=== PATIENT | female | born 1940 | race Caucasian/White ===

== ENCOUNTER → 2016-10-19 | Outpatient (CLI) | payer MEDICARE ==
[2016-10-20 13:28] LABS: C-ANCA <1:20 Titer (<1:20); P-ANCA <1:20 Titer (<1:20)
[2016-10-20 14:34] LABS: Scleroderma 70 Antibody 5 UNITS (<20)
== END ==
LOC: LABWHC1 13:42
PROVIDERS: ATTEND Nurse Practitioner Family
DX: J34.81 Nasal mucositis (ulcerative) (principal)
CPT/HCPCS: 36415; 85652; 86038; 86235; 86255

== ENCOUNTER → 2016-12-02 | Outpatient (CLI) | payer MEDICARE ==
--- NOTE | 2016-12-02 15:49 | CT ---
EXAMINATION TYPE: CT sinus wo con DATE OF EXAM: 12/02/2016 3:41 PM COMPARISON: NONE HISTORY: Right sided nasal, eye and ear pain CT DLP: 699.[address] of the paranasal sinuses was performed in the axial and coronal planes. Bone and soft tissue settings are submitted. Moderate mucosal thickening involving the maxillary sinuses and ethmoid air cells as well as the fron jb sinuses with sparing of the sphenoid sinus. The osteal meatal units are obstructed bilaterally. The nasal septum is midline. No bony destructive changes are seen within the field of view. IMPRESSION: Moderate chronic sinusitis with obstruction of the bilateral ostiomeatal units.
--- NOTE | 2016-12-02 15:50 | XR ---
EXAMINATION TYPE: XR chest 2V DATE OF EXAM: 12/02/2016 3:25 PM COMPARISON: 03/22/2013 HISTORY: Shortness of breath TECHNIQUE: Frontal and lateral views of the chest are obtained. FINDINGS: Scattered senescent parenchymal changes noted. Hyperinflation compatible with COPD. No evidence for infiltrate. No evidence for atelectasis. Fixed hiatal hernia. Heart size is stable. Mediastinal structures are stable and grossly unremarkable. No evidence for hilar prominence. Degenerative changes dorsal spine. IMPRESSION: 1. No evidence for acute pulmonary disease.
== END | disposition home or self-care (01) ==
LOC: RADCTMAIN 15:11
PROVIDERS: ATTEND Otolaryngology
DX: J32.9 Chronic sinusitis, unspecified (principal); J98.8 Other specified respiratory disorders; R05 Cough
CPT/HCPCS: 70486; 71020

== ENCOUNTER → 2016-12-07 | Outpatient (CLI) | payer MEDICARE | LOC: LABWHC1 13:15 | PROVIDERS: ATTEND Otolaryngology | DX: J34.0 Abscess, furuncle and carbuncle of nose (principal) | CPT/HCPCS: 36415; 82164 ==

== ENCOUNTER → 2017-01-10 | Outpatient (CLI) | payer MEDICARE ==
[2017-01-10 11:05] LABS: Basophils # (A) 0.1 k/uL (0-0.2); Basophils % (A) 1 %; CH 29.3; CHCM 34.1; Eosinophils # (A) 0.4 k/uL (0-0.7); Eosinophils % (A) 4 %; HCT 42.6 % (34.0-46.0); HGB 14.3 gm/dL (11.4-16.0); Luc # (Auto) 0.17; Luc % (Auto) 2; Lymphocytes % (A) 21 %; MCH 28.9 pg (25.0-35.0); MCHC 33.5 g/dL (31.0-37.0); MCV 86.3 fL (80.0-100.0); Mean Platelet Volume 7.3; Monocytes # (A) 0.4 k/uL (0-1.0); Monocytes % (A) 4 %; Neutrophils # (A) 6.6 k/uL (1.3-7.7); Neutrophils % (A) 69 %; RBC 4.94 m/uL (3.80-5.40); RDW 14.5 % (11.5-15.5); WBC 9.6 k/uL (3.8-10.6); WBC (Perox) 9.51
[2017-01-10 11:25] LABS: Blood Urea Nitrogen 13 mg/dL (7-17); Non-African American GFR(MDRD) >60 (>60 ml/min/1.73 sqM)
== END | disposition home or self-care (01) ==
LOC: LABWHC1 10:45
PROVIDERS: ATTEND Otolaryngology
DX: R53.83 Other fatigue (principal)
CPT/HCPCS: 36415; 82565; 84439; 84443; 84520; 85025

== ENCOUNTER → 2018-06-20 | Outpatient (CLI) | payer MEDICARE ==
[2018-06-20 15:24] LABS: HGB 13.5 gm/dL (11.4-16.0); MCH 29.2 pg (25.0-35.0); MCHC 32.8 g/dL (31.0-37.0); MCV 88.8 fL (80.0-100.0); Mean Platelet Volume 7.3; Platelet Count 244 k/uL (150-450); RBC 4.62 m/uL (3.80-5.40); RDW 14.9 % (11.5-15.5); WBC 8.2 k/uL (3.8-10.6)
[2018-06-20 15:31] LABS: INR 0.9 (<1.2); Partial Thromboplastin Time 22.9 sec (22.0-30.0)
[2018-06-20 15:52] LABS: ALT 33 U/L (9-52); AST 31 U/L (14-36); Albumin 4.3 g/dL (3.5-5.0); Alkaline Phosphatase 58 U/L (38-126); Anion Gap 10 mmol/L; Blood Urea Nitrogen 20 mg/dL (7-17); Calcium 10.4 mg/dL (8.4-10.2); Carbon Dioxide 28 mmol/L (22-30); Chloride 103 mmol/L (98-107); Glucose 89 mg/dL (74-99); Potassium 4.1 mmol/L (3.5-5.1); Sodium 141 mmol/L (137-145); Total Bilirubin 0.4 mg/dL (0.2-1.3); Total Protein 7.2 g/dL (6.3-8.2)
[2018-06-20 16:08] LABS: Appearance,Urine Clear (Clear); Bilirubin,Urine Negative (Negative); Blood,Urine Negative (Negative); Color,Urine Yellow; Glucose,Urine (UA) Negative (Negative); Ketones,Urine Negative (Negative); Leukocyte Esterase,Urine Trace (Negative); Mucus,Urine Few /hpf; Nitrite,Urine Negative (Negative); PH, Urine 5.5 (5.0-8.0); Protein,Urine Negative (Negative); RBC,Urine 1 /hpf (0-5); Specific Gravity,Urine 1.019 (1.001-1.035); Squamous Epithelial Cell,Urine <1 /hpf (0-4); Urobilinogen,Urine <2.0 mg/dL (<2.0); WBC,Urine 2 /hpf (0-5)
== END ==
LOC: LABPAT 14:05
PROVIDERS: ATTEND Orthopaedic Surgery Sports Medicine
DX: Z01.812 Encounter for preprocedural laboratory examination (principal); M17.12 Unilateral primary osteoarthritis, left knee; Z51.81 Encounter for therapeutic drug level monitoring; Z79.01 Long term (current) use of anticoagulants
CPT/HCPCS: 36415; 80053; 81001; 85027; 85610; 85730; 87070

== ENCOUNTER 2018-07-06 09:04 | Inpatient (IN) | payer MEDICARE ==
[2018-06-27 11:09] VITALS: BMI 30.6
[~2018-07-06 09:04] MED LIST: DEXAMETHASONE SOD PHOSPHATE 10 MG/ML 1 ML VIAL IV ONE; HYDROmorphone 0.5 MG/0.5 ML SYRINGE IVP PRN; LIDOCAINE 1% 20 ML VIAL (10MG/ML) FOR IV START INTRADERMA PRN; MELOXICAM 7.5 MG TAB PO ONE; ONDANSETRON 4 MG/2 ML VIAL IVP ONE; SCOPOLAMINE 1.5MG/72HR PATCH TRANSDERM ONE; TRANEXAMIC ACID 1,000 MG in SODIUM CHLORIDE 0.9% 50 ML IVPB ONE; ceFAZolin IN SWFI 2 GM/20 ML SYRINGE IVP ONE
[2018-07-06] MEDS: LACTATED RINGERS 1,000 ML IV SCH ×2 (09:54→16:44)
[2018-07-06] MEDS: ROPIVACAINE 246.25 MG, EPINEPHrine 0.5 MG, KETOROLAC 30 MG, cloNIDine HCL/PF 80 MCG, WA... MISCELLANE ONE ×10 (10:52→11:33)
[2018-07-06] MEDS ORDERED: PHENYLEPHRINE-0.9% NACL SYG 1 MG/10 ML SYRINGE ONE (10:53)
[2018-07-06] MEDS ORDERED: TRANEXAMIC ACID 1,000 MG/10 ML VIAL ONE (10:53)
[2018-07-06] MEDS ORDERED: fentaNYL (PF) 50 MCG/ML 2 ML AMP ONE (10:53)
[2018-07-06] MEDS ORDERED: MIDAZOLAM 2 MG/2 ML VIAL ONE (10:53)
[2018-07-06] MEDS ORDERED: SODIUM CHLORIDE 0.9% 100 ML BAG ONE (10:53)
[2018-07-06] MEDS ORDERED: MORPHINE SULFATE (PF) 0.3 MG/0.3 ML SYR ONE (10:53)
[2018-07-06] MEDS ORDERED: PROPOFOL 10 MG/ML 20 ML VIAL IV ONE (10:53)
[2018-07-06] MEDS ORDERED: ceFAZolin 3,000 MG in SODIUM CHLORIDE 0.9% IRRIGATIO 3,000 ML IRRIGATION ONE (11:36)
[2018-07-06] MEDS ORDERED: HYDROcodone/APAP 7.5-325MG 1 EACH TAB PO PRN (13:02)
[2018-07-06] MEDS ORDERED: ONDANSETRON 4 MG/2 ML VIAL IVP PRN (13:02)
[2018-07-06] MEDS ORDERED: MAGNESIUM HYDROXIDE 2,400 MG/10 ML CUP PO PRN (13:02)
[2018-07-06] MEDS ORDERED: TEMAZEPAM 15 MG CAP PO PRN (13:02)
[2018-07-06] MEDS ORDERED: DIAZEPAM 5 MG TAB PO PRN (13:02)
[2018-07-06] MEDS ORDERED: HYDROmorphone 0.5 MG/0.5 ML SYRINGE IVP PRN ×3 (13:02)
[2018-07-06] MEDS ORDERED: HYDROcodone/APAP 10-325MG 1 EACH TAB PO PRN (13:02)
[2018-07-06] MEDS ORDERED: traMADol 50 MG TAB PO PRN (13:02)
[2018-07-06] MEDS ORDERED: BISACODYL 10 MG SUPP RECTAL PRN (13:02)
[2018-07-06] MEDS ORDERED: NALOXONE 0.4 MG/ML 1 ML VIAL IV PRN ×2 (13:02→13:52)
[2018-07-06] MEDS ORDERED: NA PHOS,M-B/NA PHOS,DI-BA 133 ML ENEMA RECTAL PRN (13:02)
[2018-07-06] MEDS ORDERED: HYDROcodone/APAP 5-325MG 1 EACH TAB PO PRN ×2 (13:02)
--- NOTE | 2018-07-06 13:11 | OP ---
OPERATIVE REPORT DATE OF PROCEDURE: 07/06/2018 SURGEON: Francisco Javier Zuniga MD MRI ASSISTANT: Brendon DOUGHERTY. PREOPERATIVE DIAGNOSIS: Left knee osteoarthrosis. POSTOPERATIVE DIAGNOSIS: Left knee osteoarthrosis. OPERATION: Left total knee arthroplasty. ANESTHESIA: Spinal with sedation. ESTIMATED BLOOD LOSS: 100 mL. TOURNIQUET TIME: 44 minutes at 250 mmHg. COMPLICATIONS: None apparent. DRAINS: None. DISPOSITION: Postanesthesia care unit. INDICATIONS: Maral is a very pleasant 78-year-old female, longstanding history of left knee pain. History and physical examination are consistent with advanced left knee osteoarthrosis. She has been through significant nonoperative management up to this point. Further treatment options were discussed and she decided to go forward with a left total knee arthroplasty. The risks of procedure were discussed with her in detail. These risks include, but are not limited to risk of infection, nerve damage, bleeding, pain and risk of deep vein thrombosis which could lead to fatal pulmonary embolism. There is also risk of loosening of the implant which could require revision operation. The patient understands these risks. All of her questions were answered to her satisfaction. Appropriate informed consent was obtained. DESCRIPTION OF THE PROCEDURE: Patient identified in the preoperative holding area. Surgical site is marked by both the patient and myself. She was given 2 g of Ancef IV for prophylactic purposes. She was then transferred to the operative suite. She was placed supine on the operative table. A spinal anesthetic was then administered and dosed per the Anesthesia Department without apparent complication. The examination under anesthesia was then performed. She was 2-3 degrees shy of full extension. She had 100 degrees of flexion and the medial collateral ligament, lateral collateral ligament and posterior cruciate ligaments were stable. Tourniquet was then placed high on the left upper thigh well-padded in preparation for surgery. The patient's left lower extremity was then prepped and draped in usual sterile fashion. Standard surgical pause undertaken to ensure that we were operating the correct site and that appropriate preoperative antibiotics were given. All staff in the room were in agreement and we proceeded. The outlines of the patella were marked with surgical pen. A planned 10-12 cm vertical incision centered over the patella was marked with surgical pen. Leg was then exsanguinated with an Esmarch dressing. The knee was then flexed and tourniquet was inflated to 250 mmHg. The total tourniquet time for the procedure was 44 minutes. Incision was then made with a 10 blade scalpel. Dissection was carried down sharply to the overlying fascia. Great care was taken to minimize the skin flaps. The knee was then exposed using a standard medial parapatellar approach. A small cuff of quadriceps tendon was left for suturing. She was in a bit of valgus preoperatively. A minimal medial release was made. This was done just enough to place retractors on the medial aspect of the knee. The medial meniscus was then excised as well. The lateral meniscus was also released anteriorly. The leg was then externally rotated. The patella was everted and the knee was flexed. The retractors were then placed to protect the collateral ligaments. I then proceeded to remove the infrapatellar fat pad. This was excised sharply, tangentially with the fibers of the patellar tendon. I then proceeded to remove peripheral osteophytes. This was done with a rongeur. I then proceeded with the distal femoral resection. She did have near full extension. A planned 9 mm resection was then done. The femoral canal was then entered in the midline of the femur approximately 10 mm anterior to the origin of the posterior cruciate ligament. The hailey was then advanced down the center of the femur and placed intramedullary. Based on preoperative radiographs, the angle between the anatomic and mechanical axis of the femur was approximately 4-5 degrees. The valgus angle of this femoral cutting guide was then set at 4 degrees for the left knee. The distal femoral cutting guide was then advanced over the intramedullary hailey. This was seated firmly against the femur. I then as mentioned planned to take 9 mm off the distal femur. The cutting block was then secured onto the femur with pins. The jig was removed. The distal femoral cut was made through the slot of the block. The pins were then removed. The distal femoral cutting block was removed. The accuracy of the distal femoral cuts was checked with 2 flat bars. I then proceeded with femoral sizing. Posterior referencing sizing guide was held firmly against the resected distal surface of the femur. The posterior condyles were resting on the posterior plane of the guide. The sizing stylus was then placed onto the anterior femur. The size was measured as a size 9 narrow. I then assessed for femoral rotation. The plan was for 3 degrees of external rotation. Three degrees of external rotation was placed onto the jig. These holes were then marked. I then confirmed the rotation by 3 separate methods. This was done using epicondylar axis as well as Whitesides line and posterior referencing. It was deemed that the external rotation was proper. I then went forward with placing the femoral cutting block. This was placed over the previously placed pin holes. The [place] wing was then placed on the anterior slots to ensure that we would not notch the anterior femur with the anterior femoral cut. I then proceeded with the anterior femoral cut. This was flush with the anterior cortex of the femur. The posterior cuts were then made followed by the anterior chamfer cut, then the posterior chamfer cut. The cutting block was then removed. Throughout the resection, the collateral ligaments were protected with retractors. I then placed a trial size 9 femur. It was slightly wide mediolateral but the narrow was very nice and fit flush with the distal end of the femur. The drill holes were then made. I then proceeded with the tibial cut. I planned for cruciate retaining knee. The guide was placed and set for varus valgus and for slope. The height was set for approximate 2 mm resection from the medial tibial plateau which was the lower side but was happy with the alignment and amount of resection. The cutting block was then pinned to the proximal tibia. The alignment hailey was removed and the proximal tibia was resected with a reciprocating saw. Again this was done with retractors protecting the collateral ligaments as well as the posterior cruciate ligament. I then proceeded to evaluate the flexion-extension gaps. A 10 mm block was then placed. The flexion-extension gaps were equal. I then proceeded to resection of posterior osteophytes. She had very minimal posterior osteophytes. This was done using a curved osteotome. This resected the posterior osteophytes and posterior capsule stripping was done off the posterior aspect of the femur at this time. The osteophytes were removed. I then proceeded with resection of the patella. The thickness of patella was measured using the caliper. The thickness was 24 mm. The thickness of the anticipated patellar dome was taken into account. The resection was then performed and confirmed to be equal in 4 quadrants using a caliper. Approximately 14 mm of bone remained after resection. A 32 x 8.5 mm standard patellar trial was then placed. The holes were drilled and the trial was then placed. I then proceeded with sizing tibial plate. A size F tibial plate fit very nicely. I then placed a trial of the femur. The tibial tray and patellar button. A 10 mm trial tibial insert was also placed. The components fit very nicely. She had full extension and flexion. The extension and flexion gaps were equal and stable to both varus and valgus stress. The patella tracked appropriately. The tibial tray rotation was marked with a Bovie. This was externally rotated properly. I then proceed with tibial preparation. I first drilled the femoral holes and removed femoral component. The tibial tray was then set for proper external rotation as well as mediolateral placement onto the tibia. It was then pinned into place. I then proceeded with punching the keel. I then decided to proceed with cementing of all of our components. The knee was thoroughly irrigated with sterile saline solution via pulse lavage. The lateral geniculate artery was identified and cauterized. All blood was removed from the bone of the tibia femur and patella with pulse lavage. I then proceed with cementing. Two packs of antibiotic bone cement prepared on the back table by the medical surgical tech. I then proceed with cementing the tibia first. Cement was impacted in the keel as well as deeply seated in the bone. A second coat of cement was then placed. The tibia was then impacted into place. Excess cement was removed with Cecile's and Joker's. I then proceeded with cementing the femoral component. The femoral component was also cemented using standard technique. Excess cement was removed. A 10 mm trial insert was then placed into the knee. It was brought into full extension with a constant axial load placed until the cement had hardened. The patellar component was then cemented. This was held firmly with a compressive device until the cement had dried. When the cement had dried, the knee was taken out of extension. All excess cement was removed from around the prosthesis. I then trialed the knee with a 10 mm insert. The flexion-extension gaps were appropriate. I then trialed with a 12 mm insert. Flexion extension gaps felt much better. The knee was stable with the 12 mm insert. It came into full extension. I decided to go for the 12 mm cross-linked cruciate-retaining tibial insert. Polyethylene was then placed on the tibial tray and locked into place. The knee was then reduced. The knee was again further irrigated with sterile saline solution with antibiotic added. The tourniquet was then deflated. Total tourniquet time for the procedure was 44 minutes at 250 mmHg. Final components were Juan A Persona size 9 narrow cruciate-retaining femoral component, a size F tibial tray, a 12 mm medial congruent cruciate-retaining polyethylene insert and a 32 x 8.5 mm patella. I then proceeded with closure. Again, the knee was thoroughly irrigated. The quadriceps tendon and the medial retinaculum were reapproximated with #2 Ethibond suture. The extensor mechanism was then closed with a running #2 Quill suture. Subcutaneous tissues were then closed with 2-0 Vicryl suture. The skin was closed with a running 3-0 Quill suture. Dermabond was applied to the incision. Sterile compressive dressing was then applied. All sponge and needle counts were deemed correct prior to closure. The patient tolerated the procedure without apparent complication. She was transferred to recovery room in stable condition. MMODL / IJN: [id number] /
--- NOTE | 2018-07-06 13:32 | XR ---
EXAMINATION TYPE: XR knee limited LT DATE OF EXAM: 07/06/2018 COMPARISON: NONE HISTORY: 78-year-old female evaluation for postoperative abnormality and alignment TECHNIQUE: 2 views FINDINGS: Images show placement of left total knee arthroplasty. The distal femoral and proximal tibial compone nts of the prosthesis appear well seated without periprosthetic fracture. Alignment grossly anatomic. Soft tissue swelling with anterior soft tissue air as well as intra-articular air and joint effusion compatible with recent operation. IMPRESSION: Uncomplicated postoperative appearance left total knee arthroplasty.
[2018-07-06] MEDS ORDERED: diphenhydrAMINE 50 MG/ML 1 ML VIAL IVP PRN (13:52)
[2018-07-06] MEDS ORDERED: NALBUPHINE 10 MG/ML VIAL (10ML MDV) IV PRN (13:52)
--- NOTE | 2018-07-06 16:01 | P.CONS ---
History of Present Illness - Reason for Consult Consult date: 07/06/18 Requesting physician: Francisco Javier Zuniga - Chief Complaint medical management - History of Present Illness This is 78 years old female with past medical history of TIA. 10 years ago, hypertension, hyperlipidemia, GERD patient of Dr. Baker presents for an elective left total knee replacement. Internal medicine team is consulted for medical management. Patient denies any shortness of breath, chest pain, breathing difficulty, palpitation, abdominal pain, change in bowel habits, pain in the knee, any history of DVT or pulmonary embolism in the past. Patient is postop left knee arthroplasty blood pressure last reported to be 94/ 76, pulse 76 saturating well on room air. No labs in the chart. No history of coronary artery disease or COPD. Review of Systems Constitutional: Denies chills, Denies fever, Denies lethargy, Denies malaise, Denies poor appetite, Denies weakness, Denies weight loss Eyes: denies decreased vision, denies diplopia, denies discharge, denies pain Ears: deny: decreased hearing Ears, nose, mouth and throat: Denies dental pain, Denies headache, Denies nasal discharge, Denies nose pain Cardiovascular: Denies chest pain, Denies decreased exercise tolerance, Denies edema, Denies high blood pressure, Denies irregular heart beat, Denies palpitations, Denies paroxysmal nocturnal dyspnea, Denies rapid heart beat, Denies shortness of breath Respiratory: Denies congestion, Denies cough, Denies cough with sputum, Denies dyspnea, Denies home oxygen, Denies wheezing Gastrointestinal: Denies abdominal pain, Denies change in bowel habits, Denies coffee ground emesis, Denies early satiety, Denies excessive gas, Denies heartburn, Denies hematemesis, Denies hematochezia, Denies loss of appetite, Denies nausea, Denies vomiting Genitourinary: Denies dysuria, Denies flank pain, Denies kidney stones, Denies menorrhagia, Denies urgency, Denies urinary frequency Musculoskeletal: Denies gait dysfunction, Denies limitation of motion, Denies morning stiffness, Denies muscle cramps endorses left knee pain Integumentary: Denies rash, Denies wounds, Denies brittle nails, Denies change in hair/nails, Denies darkening of skin Neurological: Denies balance difficulties, Denies change in speech, Denies double vision, Denies gait dysfunction, Denies loss of vision, Denies motor disturbance, Denies numbness, Denies paralysis, Denies paresthesias, Denies seizures Psychiatric: Denies anxiety, Denies depression Endocrine: Denies excessive sweating, Denies excessive thirst, Denies high blood sugars, Denies palpitations Hematologic/Lymphatic: Denies easy bruising, Denies lymphadenopathy Past Medical History Past Medical History: CVA/TIA, GERD/Reflux, GI Bleed, Hyperlipidemia, Hypertension, Osteoarthritis (OA) Additional Past Medical History / Comment(s): HX TIA-no residual effects, diarrhea, diverticulitis, hx gout, 10 yrs ago had GI bleed from diverticulitis, History of Any Multi-Drug Resistant Organisms: None Reported Past Surgical History: Cholecystectomy, Joint Replacement, Orthopedic Surgery, Tubal Ligation Additional Past Surgical History / Comment(s): ORIF rt ankle, [place] hip replacements, left cataract, sinus surgery Past Anesthesia/Blood Transfusion Reactions: Previous Problems w/ Anesthesia Additional Past Anesthesia/Blood Transfusion Reaction / Comm: had hallucinations from propofol Smoking Status: Former smoker - Past Family History Mother Family Medical History: No Reported History Medications and Allergies Home Medications Medication Instructions Recorded Confirmed Type Alendronate Sodium [Fosamax] 70 mg PO MO 06/27/18 07/06/18 History Calcium + D3 1 tab PO HS 06/27/18 07/06/18 History Cholecalciferol [Vitamin D3] 2,000 unit PO HS 06/27/18 07/06/18 History Ezetimibe [Zetia] 10 mg PO DAILY 06/27/18 07/06/18 History Ibuprofen [Advil] 200 mg PO DAILY PRN MDD alternates 06/27/18 07/06/18 History with aleve Metoprolol Tartrate [Lopressor] 25 mg PO BID 06/27/18 07/06/18 History Multivitamins, Thera [Multivitamin 1 tab PO HS 06/27/18 07/06/18 History (formulary)] Naproxen Sodium [Aleve] 220 mg PO DAILY 06/27/18 07/06/18 History Omeprazole [PriLOSEC] 20 mg PO AC-BRKFST 06/27/18 07/06/18 History Triamterene/Hydrochlorothiazid 1 tab PO QAM 06/27/18 07/06/18 History [Triamterene-Hctz 37.5-25 mg Tb] Allergies Allergy/AdvReac Type Severity Reaction Status Date / Time acetaminophen Allergy Nausea Verified 07/06/18 13:49 [From Tylenol-Codeine #3] black walnut Allergy Unknown Verified 07/06/18 13:49 codeine Allergy Nausea Verified 07/06/18 13:49 egg yolk Allergy Unknown Verified 07/06/18 13:49 hydrocodone [From Ismay] Allergy hearing Verified 07/06/18 13:49 loss Penicillins Allergy Nausea Verified 07/06/18 13:49 Physical Exam Vitals: Vital Signs Temp Pulse Pulse Resp BP BP Pulse Ox 07/06/18 15:15 76 94/76 07/06/18 15:00 75 99/60 07/06/18 14:30 71 170/71 07/06/18 14:15 97.7 F 73 14 95/54 95 07/06/18 13:45 67 16 95/55 96 07/06/18 13:30 66 16 93/57 97 07/06/18 13:15 64 16 101/48 97 07/06/18 13:02 97.1 F L 65 16 101/49 96 07/06/18 09:41 98.0 F 69 16 112/56 96 Intake and Output 07/06/18 07/06/18 07/06/18 06:59 14:59 22:59 Intake Total 801 Output Total 100 Balance 701 Intake: IV 801 Output: Estimated Blood Loss 100 - Constitutional General appearance: cooperative, no acute distress, obese - EENT Eyes: anicteric sclerae, PERRLA, normal appearance ENT: hearing grossly normal - Neck Neck: no lymphadenopathy, normal ROM, no other, no rigidity, no stridor, no thyromegaly - Respiratory Respiratory: bilateral: CTA, negative: diminished, dullness, rales, rhonchi - Cardiovascular Rhythm: regular Heart sounds: normal: S1, S2 Abnormal Heart Sounds: no systolic murmur, no diastolic murmur - Gastrointestinal General gastrointestinal: normal bowel sounds, soft - Integumentary Integumentary: no rash - Neurologic Neurologic: CNII-XII intact - Musculoskeletal Musculoskeletal: Left knee wrapped in dressing. Peripheral pulses palpable normal perfusion neurovascular system intact - Psychiatric Psychiatric: A&O x's 3, appropriate affect Assessment and Plan Plan: #1 left knee arthroplasty postoperative day 0. Continue incentive spirometry Pepcid for GI prophylaxis. Aspirin 325 mg twice a day for DVT prophylaxis. Encourage mobility PTOT consult possible discharge tomorrow. Pain control per primary team #2 hypertension blood pressure on the low side. We'll hold triamterene/HCTZ. Metoprolol decreased to 12.5 mg twice a day. Continue IV fluids. Encourage oral intake of fluids low-salt diet. Heart healthy diet. #3 hyperlipidemia continue Zetia at current dose 4 history of GI bleed from diverticulitis, normal recent episode continue aspirin 325 mg twice a day. Avoid nuts or seeds to avoid flareup of diverticulitis. #5 GI prophylaxis with Pepcid 20 mg by mouth daily #6 DVT prophylaxis with aspirin 325 mg by mouth twice a day CODE STATUS full code Thank you for the consult. I'll be happy to assist in patient's medical need for the patient is in the hospital
[2018-07-06] MEDS: diphenhydrAMINE 25 MG CAP PO PRN (16:08)
[2018-07-06] MEDS: ceFAZolin IN SWFI 2 GM/20 ML SYRINGE IVP SCH (19:48)
[2018-07-06] MEDS: METOPROLOL TARTRATE 12.5 MG TAB PO SCH (20:22)
[2018-07-06] MEDS: ASPIRIN 325 MG TAB PO SCH (20:22)
[2018-07-06] MEDS ORDERED: CALCIUM CARB-VIT D 500MG-200UN 1 EACH TAB PO SCH (21:00)
[2018-07-06] MEDS ORDERED: SENNOSIDES-DOCUSATE SODIUM 1 EACH TAB PO SCH (21:00)
[2018-07-06] MEDS ORDERED: CHOLECALCIFEROL 1,000 UNIT TAB PO SCH (21:00)
[2018-07-07] MEDS: ceFAZolin IN SWFI 2 GM/20 ML SYRINGE IVP SCH (02:24)
[2018-07-07] MEDS: diphenhydrAMINE 25 MG CAP PO PRN ×2 (02:49→07:48)
[2018-07-07] MEDS: LACTATED RINGERS 1,000 ML IV SCH ×2 (03:41)
[2018-07-07 07:21] LABS: Basophils % (A) 0 %; Eosinophils % (A) 0 %; HCT 34.6 % (34.0-46.0); HGB 11.3 gm/dL (11.4-16.0); Lymphocytes # (A) 1.3 k/uL (1.0-4.8); Lymphocytes % (A) 12 %; MCH 28.8 pg (25.0-35.0); MCHC 32.8 g/dL (31.0-37.0); MCV 87.8 fL (80.0-100.0); Mean Platelet Volume 7.6; Monocytes # (A) 0.5 k/uL (0-1.0); Monocytes % (A) 5 %; Neutrophils # (A) 9.1 k/uL (1.3-7.7); Neutrophils % (A) 82 %; Platelet Count 245 k/uL (150-450); RBC 3.94 m/uL (3.80-5.40); RDW 14.2 % (11.5-15.5); WBC 11.1 k/uL (3.8-10.6)
[2018-07-07] MEDS ORDERED: PANTOPRAZOLE 40 MG TABLET PO SCH (07:30)
[2018-07-07] MEDS: METOPROLOL TARTRATE 12.5 MG TAB PO SCH (07:48)
[2018-07-07 07:51] VITALS: BP 97/59; PULSE 63; RESP 12; TEMP 97.8
[2018-07-07] MEDS: ASPIRIN 325 MG TAB PO SCH (07:52)
--- NOTE | 2018-07-07 08:52 | P.DS ---
Providers Date of admission: 07/06/18 09:04 Expected date of discharge: 07/07/18 Attending physician: Francisco Javier Zuniga Consults: 07/06/18 13:02 Consult Physician Routine Consulting Provider: Garret Baker Reason/Comments: post op medical management Do you want consulting provider notified?: Yes Primary care physician: Garret Baker - Discharge Diagnosis(es) (1) Osteoarthritis of left knee Patient was admitted to the OR on 07/06/2018 to undergo a left total knee arthroplasty. She had failed conservative measures as an outpatient and desired to proceed with elective surgery after given informed consent. She underwent the above procedure which he tolerated well without complication. Postoperative hospital course has remained without complication. On day of discharge she is afebrile, vital signs stable, labs within acceptable ranges, tolerating by mouth meds and diet, voiding without difficulty, positive flatus, denies abdominal pain or calf pain, pain is controlled on oral pain medication and has no new complaints. Wound is benign, neurovascular status is intact, calf is soft and nontender, abdomen soft and nontender. Review of systems is negative for numbness, tingling, fever, chills, chest pain, shortness breath, nausea, vomiting, dizziness, headaches, slurred speech or other. Current Visit: Yes Status: Acute Priority: Medium (2) Status post total left knee replacement Current Visit: Yes Status: Acute Priority: Medium Procedures: Left TKA Patient Condition at Discharge: Good Plan - Discharge Summary Discharge Rx Participant: No New Discharge Prescriptions: New traMADol HCL [Ultram] 50 mg PO Q4HR PRN #56 tab PRN Reason: Pain Aspirin 325 mg PO BID #60 tab Docusate [Colace] 100 mg PO BID #60 capsule No Action Multivitamins, Thera [Multivitamin (formulary)] 1 tab PO HS Cholecalciferol [Vitamin D3] 2,000 unit PO HS Ezetimibe [Zetia] 10 mg PO DAILY Triamterene/Hydrochlorothiazid [Triamterene-Hctz 37.5-25 mg Tb] 1 tab PO QAM Omeprazole [PriLOSEC] 20 mg PO AC-BRKFST Metoprolol Tartrate [Lopressor] 25 mg PO BID Calcium + D3 1 tab PO HS Naproxen Sodium [Aleve] 220 mg PO DAILY Ibuprofen [Advil] 200 mg PO DAILY PRN MDD alternates with aleve PRN Reason: Pain Alendronate Sodium [Fosamax] 70 mg PO MO Discharge Medication List Alendronate Sodium [Fosamax] 70 mg PO MO 06/27/18 [History] Calcium + D3 1 tab PO HS 06/27/18 [History] Cholecalciferol [Vitamin D3] 2,000 unit PO HS 06/27/18 [History] Ezetimibe [Zetia] 10 mg PO DAILY 06/27/18 [History] Ibuprofen [Advil] 200 mg PO DAILY PRN MDD alternates with aleve 06/27/18 [ History] Metoprolol Tartrate [Lopressor] 25 mg PO BID 06/27/18 [History] Multivitamins, Thera [Multivitamin (formulary)] 1 tab PO HS 06/27/18 [History] Naproxen Sodium [Aleve] 220 mg PO DAILY 06/27/18 [History] Omeprazole [PriLOSEC] 20 mg PO AC-BRKFST 06/27/18 [History] Triamterene/Hydrochlorothiazid [Triamterene-Hctz 37.5-25 mg Tb] 1 tab PO QAM [History] Aspirin 325 mg PO BID #60 tab 07/07/18 [Rx] Docusate [Colace] 100 mg PO BID #60 capsule 07/07/18 [Rx] traMADol HCL [Ultram] 50 mg PO Q4HR PRN #56 tab 07/07/18 [Rx] Follow up Appointment(s)/Referral(s): [facility], [NON-STAFF] - Francisco Javier Zuniga MD [STAFF PHYSICIAN] - 10 Days Activity/Diet/Wound Care/Special Instructions: Take meds as directed F/U with Dr. Zuniga in office WBAT keep wound clean and dry May shower in 72 hrs if no bleeding Discharge Disposition: HOME WITH HOME HEALTH SERVICES
[2018-07-07] MEDS ORDERED: EZETIMIBE 10 MG TAB PO SCH (09:00)
--- NOTE | 2018-07-07 11:56 | P.PN ---
Progress Note - Text Progress Note Date: 07/07/18 Postoperative day 1 status , left total knee arthroplasty under spinal anesthesia, and intrathecal morphine given for postoperative analgesia, patient doing well, there is no anesthesia related complications, Patient had no headache, vital signs stable , Assessment and plan= postop day 1 , doing well there is no anesthesia related complication.
[2018-07-07] MEDS ORDERED: MULTIVITAMINS, THERA 1 EACH TAB PO SCH (12:00)
--- NOTE | 2018-07-07 13:46 | P.PN ---
Subjective Progress Note Date: 07/07/18 This is 78 years old female with past medical history of TIA. 10 years ago, hypertension, hyperlipidemia, GERD patient of Dr. Baker presents for an elective left total knee replacement. Internal medicine team is consulted for medical management. Patient denies any shortness of breath, chest pain, breathing difficulty, palpitation, abdominal pain, change in bowel habits, pain in the knee, any history of DVT or pulmonary embolism in the past. Patient is postop left knee arthroplasty blood pressure last reported to be 94/ 76, pulse 76 saturating well on room air. No labs in the chart. No history of coronary artery disease or COPD. patient examined bedside. Complains of no significant pain in the operative knee. Continues to have slight itching improved with Benadryl. Patient is getting discharged today. Denies any shortness of breath, chest pain , lower extremity edema, swelling around the knee. Patient is able to mobilize the knee without significant pain. Review of system Constitutional: Denies chills, Denies fever, Denies lethargy, Denies malaise, Denies poor appetite, Denies weakness, Denies weight loss Eyes: denies decreased vision, denies diplopia, denies discharge, denies pain Ears: deny: decreased hearing Ears, nose, mouth and throat: Denies dental pain, Denies headache, Denies nasal discharge, Denies nose pain Cardiovascular: Denies chest pain, Denies decreased exercise tolerance, Denies edema, Denies high blood pressure, Denies irregular heart beat, Denies palpitations, Denies paroxysmal nocturnal dyspnea, Denies rapid heart beat, Denies shortness of breath Respiratory: Denies congestion, Denies cough, Denies cough with sputum, Denies dyspnea, Denies home oxygen, Denies wheezing Gastrointestinal: Denies abdominal pain, Denies change in bowel habits, Denies coffee ground emesis, Denies early satiety, Denies excessive gas, Denies heartburn, Denies hematemesis, Denies hematochezia, Denies loss of appetite, Denies nausea, Denies vomiting Genitourinary: Denies dysuria, Denies flank pain, Denies kidney stones, Denies menorrhagia, Denies urgency, Denies urinary frequency Musculoskeletal: mild knee pain, increased mobility Objective - Vital Signs Vital signs: Vital Signs Temp 97.8 F 07/07/18 07:00 Pulse 63 07/07/18 07:00 Resp 12 07/07/18 07:00 BP 97/59 07/07/18 07:00 Pulse Ox 95 07/07/18 07:00 Intake & Output 07/06/18 07/07/18 07/07/18 18:59 06:59 18:59 Intake Total 801 1230 Output Total 100 Balance 701 1230 Weight 77.111 kg Intake: IV 801 Intake, IV Titration 750 Amount Lactated Ringers 1,000 ml 750 @ 75 mls/hr IV .[id number] HARINI Rx#:[id number] Oral 480 Output: Estimated Blood Loss 100 Other: # Voids 1 - Exam - Constitutional General appearance: cooperative, no acute distress, obese - Respiratory Respiratory: bilateral: CTA, negative: diminished, dullness, rales, rhonchi - Cardiovascular Rhythm: regular Heart sounds: normal: S1, S2 Abnormal Heart Sounds: no systolic murmur, no diastolic murmur - Gastrointestinal General gastrointestinal: normal bowel sounds, soft - Integumentary Integumentary: no rash - Neurologic Neurologic: CNII-XII intact - Musculoskeletal Musculoskeletal: Left knee wrapped in dressing. Peripheral pulses palpable normal perfusion neurovascular system intact - Labs CBC & Chem 7: 07/07/18 06:56 Labs: Abnormal Lab Results - Last 24 Hours (Table) 07/07/18 Range/Units 06:56 WBC 11.1 H (3.8-10.6) k/uL Hgb 11.3 L (11.4-16.0) gm/dL Neutrophils # 9.1 H (1.3-7.7) k/uL Assessment and Plan Plan: #1 left knee arthroplasty postoperative day 1. Continue incentive spirometry Pepcid for GI prophylaxis. Aspirin 325 mg twice a day for DVT prophylaxis. Encourage mobility PTOT consult possible discharge tomorrow. Pain control per primary team #2 hypertension blood pressure on the low side. We'll hold triamterene/HCTZ. Metoprolol decreased to 12.5 mg twice a day. Continue IV fluids. Encourage oral intake of fluids low-salt diet. Heart healthy diet. #3 hyperlipidemia continue Zetia at current dose 4 history of GI bleed from diverticulitis, normal recent episode continue aspirin 325 mg twice a day. Avoid nuts or seeds to avoid flareup of diverticulitis. #5 GI prophylaxis with Pepcid 20 mg by mouth daily #6 DVT prophylaxis with aspirin 325 mg by mouth twice a day CODE STATUS full code Thank you for the consult. I'll be happy to assist in patient's medical need for the patient is in the hospital
== END 2018-07-07 14:25 | disposition home health service (06) | DRG 470 ==
LOC: 2ORMAIN 09:04 → 4SSUR 13:03
PROVIDERS: ADMIT Orthopaedic Surgery Sports Medicine; ATTEND Orthopaedic Surgery Sports Medicine
PROC: 0SRD0J9 Replacement of Left Knee Joint with Synthetic Substitute, Cemented, Open Approach (ICD-10-PCS; principal; 2018-07-06 11:00)
DX: M17.12 Unilateral primary osteoarthritis, left knee (principal); E78.5 Hyperlipidemia, unspecified; F32.9 Major depressive disorder, single episode, unspecified; I10 Essential (primary) hypertension; K21.9 Gastro-esophageal reflux disease without esophagitis; Z79.83 Long term (current) use of bisphosphonates; Z79.899 Other long term (current) drug therapy; Z86.73 Personal history of transient ischemic attack (TIA), and cerebral infarction without residual deficits; Z87.891 Personal history of nicotine dependence; Z90.49 Acquired absence of other specified parts of digestive tract; Z96.643 Presence of artificial hip joint, bilateral; Z98.42 Cataract extraction status, left eye; Z79.1 Long term (current) use of non-steroidal anti-inflammatories (NSAID); Z88.0 Allergy status to penicillin; Z88.6 Allergy status to analgesic agent; Z91.012 Allergy to eggs; Z88.5 Allergy status to narcotic agent; Z91.018 Allergy to other foods
CPT/HCPCS: 85025; 88300

== ENCOUNTER 2020-01-23 10:04 | Observation (INO) | payer MEDICARE ==
[2020-01-23] MEDS ORDERED: SODIUM CHLORIDE 0.9% 500 ML 500 ML IV STA (10:31)
--- NOTE | 2020-01-23 10:52 | ED ---
General Adult HPI - General Chief complaint: Neuro Symptoms/Deficit Stated complaint: Poss stroke Time Seen by Provider: 01/23/20 10:05 Source: patient, RN notes reviewed, old records reviewed Mode of arrival: wheelchair Limitations: no limitations - History of Present Illness Initial comments: This is an 79-year-old female presents emergency Department complaining of expressive aphasia yesterday. Patient states it lasts approximately one hour. Patient states she woke up today and had a fairly significant headache that was on the left side of her head. Patient states the symptoms are much improved at this time. Patient states she has a history of multiple TIAs but has been years. Patient denies any fever chills or cough per patient denies any current numbness or weakness. Patient denies any specific or slurred speech at this time. Patient denies any chest pain difficulty breathing first breath per patient denies any abdominal pain patient denies nausea vomiting diarrhea. - Related Data Home Medications Medication Instructions Recorded Confirmed Alendronate Sodium [Fosamax] 70 mg PO MO 06/27/18 01/23/20 Ezetimibe [Zetia] 10 mg PO DAILY 06/27/18 01/23/20 Metoprolol Tartrate [Lopressor] 25 mg PO BID 06/27/18 01/23/20 Multivitamins, Thera [Multivitamin 1 tab PO DAILY 06/27/18 01/23/20 (formulary)] Omeprazole [PriLOSEC] 20 mg PO AC-BRKFST 06/27/18 01/23/20 Calcium Carbonate [Tums] 500 - 1,000 mg PO TID PRN 01/23/20 01/23/20 Cholecalciferol (Vitamin D3) 50 mcg PO DAILY 01/23/20 01/23/20 [Vitamin D3] Collagen 1 tab PO DAILY 01/23/20 01/23/20 Magnesium Oxide 400 mg PO DAILY 01/23/20 01/23/20 Triamterene-Hctz 37.5-25Mg 1 cap PO DAILY 01/23/20 01/23/20 [Dyazide 37.5-25 Capsule] Vit C/E/Zn/Coppr/Lutein/Zeaxan 1 cap PO BID 01/23/20 01/23/20 [Preservision Areds 2 Softgel] traMADol HCl [Ultram] 50 - 100 mg PO Q6HR PRN 01/23/20 01/23/20 Allergies Allergy/AdvReac Type Severity Reaction Status Date / Time acetaminophen Allergy Nausea Verified 01/23/20 11:48 [From Tylenol-Codeine #3] black walnut Allergy Unknown Verified 01/23/20 11:48 codeine Allergy Nausea Verified 01/23/20 11:48 egg yolk Allergy Unknown Verified 01/23/20 11:48 hydrocodone [From [place]] Allergy hearing Verified 01/23/20 11:48 loss Penicillins Allergy Nausea Verified 01/23/20 11:48 Review of Systems ROS Statement: Those systems with pertinent positive or pertinent negative responses have been documented in the HPI. ROS Other: All systems not noted in ROS Statement are negative. Past Medical History Past Medical History: CVA/TIA, GERD/Reflux, GI Bleed, Hyperlipidemia, Hypertension, Osteoarthritis (OA) Additional Past Medical History / Comment(s): HX TIA-no residual effects, diarrh ea, diverticulitis, hx gout, 10 yrs ago had GI bleed from diverticulitis, History of Any Multi-Drug Resistant Organisms: None Reported Past Surgical History: Cholecystectomy, Joint Replacement, Orthopedic Surgery, Tubal Ligation Additional Past Surgical History / Comment(s): ORIF rt ankle, [place] hip replacements, left cataract, sinus surgery, total left knee arthroplasty 07/06/18 Past Anesthesia/Blood Transfusion Reactions: Previous Problems w/ Anesthesia Additional Past Anesthesia/Blood Transfusion Reaction / Comment(s): had hallucinations from propofol Past Psychological History: No Psychological Hx Reported Smoking Status: Never smoker Past Alcohol Use History: Occasional Past Drug Use History: None Reported - Past Family History Mother Family Medical History: No Reported History General Exam - General Exam Comments Initial Comments: GENERAL: Patient is well-developed and well-nourished. Patient is nontoxic and well- hydrated and is in no acute distress. ENT: Neck is soft and supple. No significant lymphadenopathy is noted. Oropharynx is clear. Moist mucous membranes. Neck has full range of motion without eliciting any pain. EYES: The sclera were anicteric and conjunctiva were pink and moist. Extraocular movements were intact and pupils were equal round and reactive to light. Eyelids were unremarkable. PULMONARY: Unlabored respirations. Good breath sounds bilaterally. No audible rales rhonchi or wheezing was noted. CARDIOVASCULAR: There is a regular rate and rhythm without any murmurs gallops or rubs. ABDOMEN: Soft and nontender with normal bowel sounds. No palpable organomegaly was noted. There is no palpable pulsatile mass. SKIN: Skin is clear with no lesions or rashes and otherwise unremarkable. NEUROLOGIC: Patient is alert and oriented x3. Cranial nerves II through XII are grossly intact. Motor and sensory are also intact. Normal speech, volume and content. Symmetrical smile. MUSCULOSKELETAL: Normal extremities with adequate strength and full range of motion. No lower extremity swelling or edema. No calf tenderness. LYMPHATICS: No significant lymphadenopathy is noted PSYCHIATRIC: Normal psychiatric evaluation. Limitations: no limitations Course Vital Signs 01/23/20 01/23/20 01/23/20 10:06 10:30 11:43 Temperature 98.1 F Pulse Rate 64 65 56 L Respiratory 18 18 18 Rate Blood Pressure 127/71 134/74 118/70 O2 Sat by Pulse 99 96 97 Oximetry 01/23/20 12:25 Temperature Pulse Rate 52 L Respiratory 18 Rate Blood Pressure 130/75 O2 Sat by Pulse 95 Oximetry Medical Decision Making - Medical Decision Making EKG shows a normal sinus rhythm at 60 bpm MT interval 276 QRS 116 QT interval is 428 QTC is 455. Patient's EKG shows no ST segment elevation or depression. CT of the brain shows no acute abnormality. CTA of the head neck shows no acute abnormality. I spoke with Dr. Baker he agreed with the admission of the patient. I wrote admitting orders. - Lab Data Result diagrams: 01/23/20 10:45 01/23/20 10:45 Lab Results 01/23/20 01/23/20 01/23/20 Range/Units 10:45 10:45 10:45 WBC 9.3 (3.8-10.6) k/uL RBC 4.84 (3.80-5.40) m/uL Hgb 14.4 (11.4-16.0) gm/dL Hct 42.3 (34.0-46.0) % MCV 87.4 (80.0-100.0) fL MCH 29.8 (25.0-35.0) pg MCHC 34.1 (31.0-37.0) g/dL RDW 14.5 (11.5-15.5) % Plt Count 242 (150-450) k/uL Neutrophils % 68 % Lymphocytes % 19 % Monocytes % 5 % Eosinophils % 7 % Basophils % 1 % Neutrophils # 6.3 (1.3-7.7) k/uL Lymphocytes # 1.8 (1.0-4.8) k/uL Monocytes # 0.4 (0-1.0) k/uL Eosinophils # 0.6 (0-0.7) k/uL Basophils # 0.1 (0-0.2) k/uL PT 10.0 (9.0-12.0) sec INR 1.0 (<1.2) APTT 22.8 (22.0-30.0) sec Sodium 135 L (137-145) mmol/L Potassium 4.0 (3.5-5.1) mmol/L Chloride 102 (98-107) mmol/L Carbon Dioxide 25 (22-30) mmol/L Anion Gap 8 mmol/L BUN 16 (7-17) mg/dL Creatinine 0.71 (0.52-1.04) mg/dL Est GFR (CKD-EPI)AfAm >90 (>60 ml/min/1.73 sqM) Est GFR (CKD-EPI)NonAf 81 (>60 ml/min/1.73 sqM) Glucose 101 H (74-99) mg/dL Calcium 10.0 (8.4-10.2) mg/dL Total Bilirubin 0.7 (0.2-1.3) mg/dL AST 33 (14-36) U/L ALT 20 (4-34) U/L Alkaline Phosphatase 63 (38-126) U/L Troponin I (0.000-0.034) ng/mL Total Protein 7.3 (6.3-8.2) g/dL Albumin 4.4 (3.5-5.0) g/dL 01/23/20 Range/Units 10:45 WBC (3.8-10.6) k/uL RBC (3.80-5.40) m/uL Hgb (11.4-16.0) gm/dL Hct (34.0-46.0) % MCV (80.0-100.0) fL MCH (25.0-35.0) pg MCHC (31.0-37.0) g/dL RDW (11.5-15.5) % Plt Count (150-450) k/uL Neutrophils % % Lymphocytes % % Monocytes % % Eosinophils % % Basophils % % Neutrophils # (1.3-7.7) k/uL Lymphocytes # (1.0-4.8) k/uL Monocytes # (0-1.0) k/uL Eosinophils # (0-0.7) k/uL Basophils # (0-0.2) k/uL PT (9.0-12.0) sec INR (<1.2) APTT (22.0-30.0) sec Sodium (137-145) mmol/L Potassium (3.5-5.1) mmol/L Chloride (98-107) mmol/L Carbon Dioxide (22-30) mmol/L Anion Gap mmol/L BUN (7-17) mg/dL Creatinine (0.52-1.04) mg/dL Est GFR (CKD-EPI)AfAm (>60 ml/min/1.73 sqM) Est GFR (CKD-EPI)NonAf (>60 ml/min/1.73 sqM) Glucose (74-99) mg/dL Calcium (8.4-10.2) mg/dL Total Bilirubin (0.2-1.3) mg/dL AST (14-36) U/L ALT (4-34) U/L Alkaline Phosphatase (38-126) U/L Troponin I <0.012 (0.000-0.034) ng/mL Total Protein (6.3-8.2) g/dL Albumin (3.5-5.0) g/dL Disposition Clinical Impression: Transient cerebral ischemia Disposition: ADMITTED IP TO THIS HOSP Referrals: Garret Baker MD [Primary Care Provider] - 1-2 days Time of Disposition: 13:21
[2020-01-23 10:56] LABS: Basophils # (A) 0.1 k/uL (0-0.2); Basophils % (A) 1 %; Eosinophils # (A) 0.6 k/uL (0-0.7); Eosinophils % (A) 7 %; HCT 42.3 % (34.0-46.0); HGB 14.4 gm/dL (11.4-16.0); Lymphocytes # (A) 1.8 k/uL (1.0-4.8); Lymphocytes % (A) 19 %; MCH 29.8 pg (25.0-35.0); MCHC 34.1 g/dL (31.0-37.0); MCV 87.4 fL (80.0-100.0); Mean Platelet Volume 7.9; Monocytes # (A) 0.4 k/uL (0-1.0); Monocytes % (A) 5 %; Neutrophils # (A) 6.3 k/uL (1.3-7.7); Neutrophils % (A) 68 %; Platelet Count 242 k/uL (150-450); RBC 4.84 m/uL (3.80-5.40); RDW 14.5 % (11.5-15.5); WBC 9.3 k/uL (3.8-10.6)
[2020-01-23 11:04] LABS: Partial Thromboplastin Time 22.8 sec (22.0-30.0)
[2020-01-23 11:11] LABS: ALT 20 U/L (4-34); AST 33 U/L (14-36); African American GFR (CKD) >90 (>60 ml/min/1.73 sqM); Albumin 4.4 g/dL (3.5-5.0); Alkaline Phosphatase 63 U/L (38-126); Anion Gap 8 mmol/L; Blood Urea Nitrogen 16 mg/dL (7-17); Carbon Dioxide 25 mmol/L (22-30); Chloride 102 mmol/L (98-107); Glucose 101 mg/dL (74-99); Non-African American GFR(CKD) 81 (>60 ml/min/1.73 sqM); Sodium 135 mmol/L (137-145); Total Bilirubin 0.7 mg/dL (0.2-1.3); Total Protein 7.3 g/dL (6.3-8.2)
--- NOTE | 2020-01-23 12:35 | CT ---
EXAMINATION TYPE: CT brain wo con for TPA DATE OF EXAM: 01/23/2020 COMPARISON: 03/22/13 HISTORY: Difficulty with speech. CT DLP: 1075.[address] of the brain was performed. The ventricles, basal cisterns and sulci overlying the cerebral convexities demonstrate mild enlargem ent. There is no evidence for intracranial hemorrhage or sulcal effacement. There is decreased attenuation about the periventricular white matter and deep white matter of both c erebral hemispheres, compatible with chronic small vessel ischemia. Differential diagnosis does inclu de demyelination. No mass effects are seen.No midline shift. Osseous calvarium is intact. If symptoms persist consider MRI. IMPRESSION: 1. Age related atrophic and chronic small vessel ischemic change without acute intracranial process s een at this time.
--- NOTE | 2020-01-23 12:39 | XR ---
EXAMINATION TYPE: XR chest 2V DATE OF EXAM: 01/23/2020 COMPARISON: 12/02/2016. HISTORY: Shortness of breath TECHNIQUE: Frontal and lateral views of the chest are obtained. FINDINGS: Scattered senescent parenchymal changes noted. Hyperinflation compatible with COPD. No evidence for infiltrate. No evidence for atelectasis. Fixed Hiatal hernia noted. Heart size is stable. Mediastinal structures are stable and grossly unremarkable. No evidence for hilar prominence. Degenerative changes dorsal spine. IMPRESSION: 1. No evidence for acute pulmonary disease.
--- NOTE | 2020-01-23 12:43 | CT ---
EXAMINATION TYPE: CT angio head neck DATE OF EXAM: 01/23/2020 HISTORY: Difficulty with speech. COMPARISON: CT brain same date CT DLP: 400.9 mGycm. Automated Exposure Control for Dose Reduction was Utilized. TECHNIQUE: CTA scan of the neck is performed with IV Contrast, patient injected with 65 mL of Isovue 370, axial images are obtained, coronal and sagittal reformatted images are reviewed. Three-D recons tructed images are created on an independent workstation and reviewed. FINDINGS: Carotid/Vascular Structures: No evident internal carotid artery stenosis by NASCET criteria . The tra nsverse aorta, left and right subclavian, innominate artery, left and right common carotid, left and right vertebral arteries are patent. No evident aneurysm, embolus, or dissection. Anterior, posterior circulation and port lions of [place] are patent. Other: Degenerative disc changes are present in the cervical spine. There is inflammatory change pres ent in the ethmoid air cells, sphenoid sinus, maxillary sinuses IMPRESSION: Extensive sinus disease.
[2020-01-23] MEDS ORDERED: ASPIRIN 325 MG TAB PO STA (13:23)
[2020-01-23] MEDS ORDERED: traMADol 50 MG TAB PO PRN (15:05)
--- NOTE | 2020-01-23 17:08 | P.HPIM ---
History of Present Illness H&P Date: 01/23/20 Chief Complaint: TIA, expression aphasia, severe headache, arrhythmia, hyper tension and hype 79-year-old female one of my office patient with multiple medical problem known to have history of hypertension, hyperlipidemia, chronic pain syndrome, previous history of TIA and CVA, history of GI bleed, recurrent diverticulitis and severe arthritis who has been doing well until about yesterday when she was in the pull with her neighbor developed to have significant expression aphasia could not express herself the same time had significant blurred vision and fire line in her vision started on the right eye and than the left side lasted for 5-10 minutes. Patient woke up this morning with severe pounding headache on the temporal area bilaterally was slightly but worsening vision and severe abnormal balance and gait with worsening expression aphasia. She was seen by her family who insist to bring her to demurs department where was seen and evaluated. Ended up going for CT of the brain with CT angiography of the neck, EKG, laboratory value on chest x-ray with no major finding. Her blood pressure was mildly elevated initially and was stabilized before admission. With the current risk factor and symptoms decided to admit patient to the hospital will see speech therapy see neurology continue neuro exam continue to watch patient's on quality assurance monitor chassis further testing including echo cardiogram to be done along with heart monitor. At the time patient was exam at 4:00 in the afternoon her neuro symptoms are completely resolved she is not having any headache or blurred vision at the time. No palpitation or arrhythmia. Review of Systems CONSTITUTIONAL: Well-developed no acute respiratory distress. EYES: No icterus sclerae, no conjunctivitis. EARS, NOSE, MOUTH, THROAT, and FACE: No sore throat, lymphadenopathy, carotid bruits or deformity. RESPIRATORY: No SOB cough or wheezes. CARDIOVASCULAR: Mild palpitation. GASTROINTESTINAL: No Abd pain, Nausea or vomiting, no Diarrhea or constipation, No GI Bleed, no distention or masses. GENITOURINARY: Negative for Hematuria or UTI, no kidney stones. INTEGUMENT/BREAST: Negative for any muscular injury with mild osteoarthritis.. HEMATOLOGIC/LYMPHATIC: Negative for bleed or purpura. MUSCULOSKELTAL: Negative for Myalgia or arthralgia. NEURLOGICAL: TIA symptoms with expression aphasia blurred vision and slight abnormal balance and gait. BEHAVIORAL/PSYCH: Significant depression with increased stress level ENDOCRINE: Negative. Social history: Patient quit smoking in 1986, used to smoke pack a day for 20 years, no ocular abuse, she is on live alone. Family history: Father dying age 98 from old age, mother 92 to from [place], patient had 2 cystoscopy one brother one sister and brother from CAD, 3 children with no major medical problem. Past Medical History Past Medical History: CVA/TIA, GERD/Reflux, GI Bleed, Hyperlipidemia, Hypertension, Osteoarthritis (OA) Additional Past Medical History / Comment(s): TIAs, lower GI bleed from di verticulitis, arthritis in multiple joints, low back pain with bilateral sciatica, R hand gout in past, sinus problems. History of Any Multi-Drug Resistant Organisms: None Reported Past Surgical History: Cholecystectomy, Joint Replacement, Orthopedic Surgery, Tubal Ligation Additional Past Surgical History / Comment(s): ORIF rt ankle/has hardware, [place] hip replacements, total L knee arthroplasty, lumbar epidural injections, left cataract removal with lens implants, sinus surgery, colonoscopies. Past Anesthesia/Blood Transfusion Reactions: Previous Problems w/ Anesthesia Additional Past Anesthesia/Blood Transfusion Reaction / Comment(s): had hallucinations from propofol Smoking Status: Former smoker - Past Family History Mother Family Medical History: CVA/TIA Additional Family Medical History / Comment(s): Mother lived to be 92 yrs old. Father Family Medical History: No Reported History Additional Family Medical History / Comment(s): Father was healthy and lived to be 98yrs old. Medications and Allergies Home Medications Medication Instructions Recorded Confirmed Type Alendronate Sodium [Fosamax] 70 mg PO MO 06/27/18 01/23/20 History Ezetimibe [Zetia] 10 mg PO DAILY 06/27/18 01/23/20 History Metoprolol Tartrate [Lopressor] 25 mg PO BID 06/27/18 01/23/20 History Multivitamins, Thera [Multivitamin 1 tab PO DAILY 06/27/18 01/23/20 History (formulary)] Omeprazole [PriLOSEC] 20 mg PO AC-BRKFST 06/27/18 01/23/20 History Calcium Carbonate [Tums] 500 - 1,000 mg PO TID PRN 01/23/20 01/23/20 History Cholecalciferol (Vitamin D3) 50 mcg PO DAILY 01/23/20 01/23/20 History [Vitamin D3] Collagen 1 tab PO DAILY 01/23/20 01/23/20 History Magnesium Oxide 400 mg PO DAILY 01/23/20 01/23/20 History Triamterene-Hctz 37.5-25Mg 1 cap PO DAILY 01/23/20 01/23/20 History [Dyazide 37.5-25 Capsule] Vit C/E/Zn/Coppr/Lutein/Zeaxan 1 cap PO BID 01/23/20 01/23/20 History [Preservision Areds 2 Softgel] traMADol HCl [Ultram] 50 - 100 mg PO Q6HR PRN 01/23/20 01/23/20 History Allergies Allergy/AdvReac Type Severity Reaction Status Date / Time acetaminophen Allergy Nausea Verified 01/23/20 11:48 [From Tylenol-Codeine #3] black walnut Allergy Unknown Verified 01/23/20 11:48 codeine Allergy Nausea Verified 01/23/20 11:48 egg yolk Allergy Unknown Verified 01/23/20 11:48 hydrocodone [From [place]] Allergy hearing Verified 01/23/20 11:48 loss Penicillins Allergy Nausea Verified 01/23/20 11:48 Physical Exam Vitals: Vital Signs Temp Pulse Pulse Resp BP BP Pulse Ox 01/23/20 15:00 16 01/23/20 14:52 98.1 F 62 16 123/77 98 01/23/20 14:24 59 L 18 135/74 97 01/23/20 12:25 52 L 18 130/75 95 01/23/20 11:43 56 L 18 118/70 97 01/23/20 10:30 65 18 134/74 96 01/23/20 10:06 98.1 F 64 18 127/71 99 Intake and Output 01/23/20 01/23/20 01/23/20 06:59 14:59 22:59 Intake Total 500 Balance 500 Intake: IV 500 Sodium Chloride 0.9% 500 500 ml 500 ml @ 999 mls/hr IV .Q31M STA Rx#:[id number] Other: Weight 70.307 kg General Appearance: Alert, cooperative, no distress, appears stated age. Neck HEENT: Supple, no lymphadenopathy, no thyroid enlargement, no carotid bruits. Lungs: Clear to auscultation without crackles or wheezes no rhonchi, no def ormity. Chest Wall: Decrease expansion with deep inspiration no tenderness and no deformity was found on exam, no costochondral pain or discomfort. Heart: Regular rate and rhythm, S1, S2 normal, no murmur, rub or gallop. Back: Symmetric, no curvature, ROM normal, no CVA tenderness. Abdomen: Soft, non-tender, bowel sounds active all four quadrants, no masses, no organomegaly. Extremities: Extremities normal, atraumatic, no cyanosis or edema. Pulses: 2+ and symmetric. Skin: Skin color, texture, tugor normal, no rashes or lesions. Neurologic: Alert oriented x3 cranial nerves II through XII intact, generalized weakness with abnormal balance and gait or speech at the time of exam was normal. Results CBC & Chem 7: 01/23/20 10:45 01/23/20 10:45 Labs: Abnormal Lab Results - Last 24 Hours (Table) 01/23/20 Range/Units 10:45 Sodium 135 L (137-145) mmol/L Glucose 101 H (74-99) mg/dL Thrombosis Risk Factor Assmnt - Choose All That Apply Any of the Below Risk Factors Present?: Yes Each Factor Represents 1 point: Obesity (BMI >25) Other Risk Factors: Yes Each Risk Factor Represents 3 Points: Age 75 years or older Other congenital or acquired thrombophilia - If yes, enter type in comment: No Thrombosis Risk Factor Assessment Total Risk Factor Score: 4 Thrombosis Risk Factor Assessment Level: Moderate Risk Assessment and Plan Assessment: 1 TIA/CVA: Resolve symptoms so far, patient continued to have slight slurred speech with slight abnormal balance and gait and vision, MRI of the brain can be beneficial, continue neuro exam, continue to watch for any arrhythmia on a quality assurance monitor chassis echocardiogram will be beneficial and awaiting for final result from neuro consultation. 2 significant high blood pressure: Patient has been doing well with current medication from metoprolol to Dyazide Will add amlodipine if blood pressure sys tolic above 1:30. 3 hyperlipidemia: Remain on Zetia 10 mg a day: Patient could not tolerate statin. 4 edema: Has been on diuretics. 5 severe GERD: Patient is doing well on omeprazole 20 mg a day. 6 chronic pain syndrome: Patient has been on tramadol on as needed basis. 7 osteoporosis: Patient has been on Alderonate 60 mg weekly. 8 arrhythmia: Continue patient on quality assurance monitor chassis, continue patient on beta vanesa for now. Watch for any sign of A. fib. 9 DVT prophylaxis: Early mobilization along with knee-high DINESH hose. 10 GI prophylaxis: Patient will be on omeprazole. CODE STATUS: Full code. Admit patient to observation for 1-2 night stay.
[2020-01-24] MEDS: METOPROLOL TARTRATE 25 MG TAB PO SCH ×2 (00:18→09:23)
[2020-01-24 04:33] LABS: Cholesterol 242 mg/dL (<200); HDL Cholesterol 41 mg/dL (40-60); LDL Cholesterol,Calculated 154 mg/dL (0-99); Triglycerides 237 mg/dL (<150)
[2020-01-24] MEDS ORDERED: PANTOPRAZOLE 40 MG TABLET PO SCH (07:30)
[2020-01-24 07:59] VITALS: BP 128/68; PULSE 80; RESP 16; TEMP 97.9
--- NOTE | 2020-01-24 08:27 | P.DS ---
Providers Date of admission: 01/23/20 13:23 Expected date of discharge: 01/24/20 Attending physician: Garret Baker Consults: 01/23/20 13:23 Consult Physician Routine Consulting Provider: Julian Dueñas Consult Reason/Comments: TIA Do you want consulting provider notified?: Yes Primary care physician: Garret [facility] Course: 79-year-old female one of my office patient with multiple medical problem known to have history of hypertension, hyperlipidemia, chronic pain syndrome, previous history of TIA and CVA, history of GI bleed, recurrent diverticulitis and severe arthritis who has been doing well until about yesterday when she was in the pull with her neighbor developed to have significant expression aphasia could not express herself the same time had significant blurred vision and fire line in her vision started on the right eye and than the left side lasted for 5-10 minutes. Patient woke up this morning with severe pounding headache on the temporal area bilaterally was slightly but worsening vision and severe abnormal balance and gait with worsening expression aphasia. She was seen by her family who insist to bring her to demurs department where was seen and evaluated. Ended up going for CT of the brain with CT angiography of the neck, EKG, laboratory value on chest x-ray with no major finding. Her blood pressure was mildly elevated initially and was stabilized before admission. With the current risk factor and symptoms decided to admit patient to the hospital will see speech therapy see neurology continue neuro exam continue to watch patient's on as400 administrator further testing including echo cardiogram to be done along with heart monitor. At the time patient was exam at 4:00 in the afternoon her neuro symptoms are completely resolved she is not having any headache or blurred vision at the time. No palpitation or arrhythmia. 01/23: Patient denies any new complaints. Depression was discussed with the patient and patient started on Lexapro. Patient also started on Plavix for stroke prevention. Patient was seen by neurology with recommendations for MRI as an outpatient, follow-up with neurologist. ESR ordered, hemoglobin A1c and TSH were ordered and reports are pending at the time of discharge. Patient also recommended for baby aspirin and Lipitor. Plan to continue Plavix for one month. Patient will follow-up in the office and have MRI scheduled. Patient will be discharged home today in stable condition. Discharge diagnoses: 1 TIA 2 significant high blood pressure 3 hyperlipidemia 4 edema 5 severe GERD 6 chronic pain syndrome 7 osteoporosis 8 arrhythmia 9 COVID-19 infection of present Discharge plan: Home Impression and plan of care have been directed as dictated by the signing physician. Cami Pitts nurse practitioner acting as scribe for signing physician. Patient Condition at Discharge: Good Plan - Discharge Summary Discharge Rx Participant: No New Discharge Prescriptions: New Escitalopram [Lexapro] 10 mg PO DAILY #30 tab Clopidogrel Bisulfate [Plavix] 75 mg PO DAILY #30 tab Continue Multivitamins, Thera [Multivitamin (formulary)] 1 tab PO DAILY Ezetimibe [Zetia] 10 mg PO DAILY Omeprazole [PriLOSEC] 20 mg PO AC-BRKFST Metoprolol Tartrate [Lopressor] 25 mg PO BID Alendronate Sodium [Fosamax] 70 mg PO MO Collagen 1 tab PO DAILY Calcium Carbonate [Tums] 500 - 1,000 mg PO TID PRN PRN Reason: Heartburn Cholecalciferol (Vitamin D3) [Vitamin D3] 50 mcg PO DAILY Magnesium Oxide 400 mg PO DAILY traMADol HCl [Ultram] 50 - 100 mg PO Q6HR PRN PRN Reason: Pain Triamterene-Hctz 37.5-25Mg [Dyazide 37.5-25 Capsule] 1 cap PO DAILY Vit C/E/Zn/Coppr/Lutein/Zeaxan [Preservision Areds 2 Softgel] 1 cap PO BID Discharge Medication List Alendronate Sodium [Fosamax] 70 mg PO MO 06/27/18 [History] Ezetimibe [Zetia] 10 mg PO DAILY 06/27/18 [History] Metoprolol Tartrate [Lopressor] 25 mg PO BID 06/27/18 [History] Multivitamins, Thera [Multivitamin (formulary)] 1 tab PO DAILY 06/27/18 [History] Omeprazole [PriLOSEC] 20 mg PO AC-BRKFST 06/27/18 [History] Calcium Carbonate [Tums] 500 - 1,000 mg PO TID PRN 01/23/20 [History] Cholecalciferol (Vitamin D3) [Vitamin D3] 50 mcg PO DAILY 01/23/20 [History] Collagen 1 tab PO DAILY 01/23/20 [History] Magnesium Oxide 400 mg PO DAILY 01/23/20 [History] Triamterene-Hctz 37.5-25Mg [Dyazide 37.5-25 Capsule] 1 cap PO DAILY 01/23/20 [History] Vit C/E/Zn/Coppr/Lutein/Zeaxan [Preservision Areds 2 Softgel] 1 cap PO BID 01/23/20 [History] traMADol HCl [Ultram] 50 - 100 mg PO Q6HR PRN 01/23/20 [History] Clopidogrel Bisulfate [Plavix] 75 mg PO DAILY #30 tab 01/24/20 [Rx] Escitalopram [Lexapro] 10 mg PO DAILY #30 tab 01/24/20 [Rx] Follow up Appointment(s)/Referral(s): Jazzy Clements MD [REFERRING] - 1 Week (office to call patient and arrange for date and time of appointment) Garret Baker MD [Primary Care Provider] - 01/28/20 1:00 pm (outpatient MRI to be scheduled through Dr. Baker) Patient Instructions/Handouts: Transient Ischemic Attack (DC) Discharge Disposition: HOME SELF-CARE
[2020-01-24] MEDS ORDERED: ASPIRIN 325 MG TAB PO SCH (09:00)
[2020-01-24] MEDS ORDERED: MAGNESIUM OXIDE 400 MG TAB PO SCH (09:00)
[2020-01-24] MEDS ORDERED: ESCITALOPRAM 10 MG TAB PO SCH (09:00)
[2020-01-24] MEDS ORDERED: TRIAMTERENE-HCTZ 37.5-25MG 1 EACH CAP PO SCH (09:00)
[2020-01-24] MEDS ORDERED: EZETIMIBE 10 MG TAB PO SCH (09:00)
[2020-01-24] MEDS ORDERED: ATORVASTATIN 40 MG TAB PO SCH (11:15)
--- NOTE | 2020-01-24 11:19 | P.CNNES ---
History of Present Illness Consult date: 01/24/20 Requesting physician: Pedro Caceres Reason for Consult: TIA History of Present Illness: This is an 79-year-old female with history of TIA (8-9 years ago and could not see at out both eyes), hypertension, hyperlipidemia, GI bleed (2010) and chronic pain syndrome that presented to the emergency department on 01/23/2024 expressive aphasia. On 01/22/2020 she had that difficulty getting her words out, the episode lasted 5-10 minutes. The episode was witnessed by patient's neighbor. She denies any associated weakness numbness no slurring of speech. About 23 minutes prior to the episode she stated that she had she described as fireworks on the side of both eyes and the episode was brief lasting few seconds she said when she covered one eye that she continued to have that firework on the side of the eye. When she put her sunglasses on the episode resolved. She denied any headache associated with this episode. On 01/23/2020 she felt like she had a headache on the left temporal side of her head and it felt like an ache in and was 4 out of 10, it lasted a couple of hours. There is no visual vision associated with ad no jaw claudication. She feels she is back to baseline and no further episodes. She denies history of strokes. Per medical record states that she had multiple TIAs according to her she only had one TIA. She is not on any antiplatelets (aspirin or Plavix or anything else) and she is not on the statins even though she has hyperlipidemia. She states that when she was on statins in the past it she had the muscle pain and, she does not recall what dose she was on. Of note she had a GI bleed episode lower GI bleed episode in 2010 and she said it was significant she wasn't on antiplatelets or anticoagulation at that time. She is an ex-smoker she stopped smoking about 4 years ago. Prior to that she was smoking 1 pack lasting for 1 week In the ED her workup was CT of the head which was reported as age-related atrophic and chronic small vessel ischemic changes without acute intracranial process seen at this time. CTA of the head and neck was reported as no evident internal carotid artery stenosis no evidence of aneurysm, embolism or dissection the anterior posterior circulation and [place] are patent. EKG showed normal sinus rhythm with ventricular rate of 68. Left axis deviation. Incomplete left bundle branch block. Review of Systems Review of system: The 12 point system was reviewed and apparent positive and negative per HPI. Past Medical History Past Medical History: CVA/TIA, GERD/Reflux, GI Bleed, Hyperlipidemia, Hypertension, Osteoarthritis (OA) Additional Past Medical History / Comment(s): TIAs, lower GI bleed from diverticulitis, arthritis in multiple joints, low back pain with bilateral sciatica, R hand gout in past, sinus problems. History of Any Multi-Drug Resistant Organisms: None Reported Past Surgical History: Cholecystectomy, Joint Replacement, Orthopedic Surgery, Tubal Ligation Additional Past Surgical History / Comment(s): ORIF rt ankle/has hardware, [place] hip replacements, total L knee arthroplasty, lumbar epidural injections, left cataract removal with lens implants, sinus surgery, colonoscopies. Past Anesthesia/Blood Transfusion Reactions: Previous Problems w/ Anesthesia Additional Past Anesthesia/Blood Transfusion Reaction / Comment(s): had hallucinations from propofol Smoking Status: Former smoker - Past Family History Mother Family Medical History: CVA/TIA Additional Family Medical History / Comment(s): Mother lived to be 92 yrs old. Father Family Medical History: No Reported History Additional Family Medical History / Comment(s): Father was healthy and lived to be 98yrs old. Medications and Allergies Home Medications Medication Instructions Recorded Confirmed Type Alendronate Sodium [Fosamax] 70 mg PO MO 06/27/18 01/23/20 History Ezetimibe [Zetia] 10 mg PO DAILY 06/27/18 01/23/20 History Metoprolol Tartrate [Lopressor] 25 mg PO BID 06/27/18 01/23/20 History Multivitamins, Thera [Multivitamin 1 tab PO DAILY 06/27/18 01/23/20 History (formulary)] Omeprazole [PriLOSEC] 20 mg PO AC-BRKFST 06/27/18 01/23/20 History Calcium Carbonate [Tums] 500 - 1,000 mg PO TID PRN 01/23/20 01/23/20 History Cholecalciferol (Vitamin D3) 50 mcg PO DAILY 01/23/20 01/23/20 History [Vitamin D3] Collagen 1 tab PO DAILY 01/23/20 01/23/20 History Magnesium Oxide 400 mg PO DAILY 01/23/20 01/23/20 History Triamterene-Hctz 37.5-25Mg 1 cap PO DAILY 01/23/20 01/23/20 History [Dyazide 37.5-25 Capsule] Vit C/E/Zn/Coppr/Lutein/Zeaxan 1 cap PO BID 01/23/20 01/23/20 History [Preservision Areds 2 Softgel] traMADol HCl [Ultram] 50 - 100 mg PO Q6HR PRN 01/23/20 01/23/20 History Atorvastatin [Lipitor] 40 mg PO DAILY #30 tab 01/24/20 Rx Clopidogrel Bisulfate [Plavix] 75 mg PO DAILY #30 tab 01/24/20 Rx Escitalopram [Lexapro] 10 mg PO DAILY #30 tab 01/24/20 Rx Allergies Allergy/AdvReac Type Severity Reaction Status Date / Time acetaminophen Allergy Nausea Verified 01/23/20 11:48 [From Tylenol-Codeine #3] black walnut Allergy Unknown Verified 01/23/20 11:48 codeine Allergy Nausea Verified 01/23/20 11:48 egg yolk Allergy Unknown Verified 01/23/20 11:48 hydrocodone [From [place]] Allergy hearing Verified 01/23/20 11:48 loss Penicillins Allergy Nausea Verified 01/23/20 11:48 Physical Examination - Vital Signs Vital Signs: Vital Signs Temp Pulse Pulse Resp BP BP BP 01/24/20 08:50 80 16 01/24/20 07:55 97.9 F 80 16 128/68 01/24/20 03:55 98.2 F 69 19 112/62 01/23/20 23:30 71 109/66 01/23/20 20:10 97.7 F 71 18 147/71 01/23/20 15:00 16 01/23/20 14:52 98.1 F 62 16 123/77 01/23/20 14:24 59 L 18 135/74 01/23/20 12:25 52 L 18 130/75 01/23/20 11:43 56 L 18 118/70 Pulse Ox 01/24/20 08:50 01/24/20 07:55 98 01/24/20 03:55 96 01/23/20 23:30 01/23/20 20:10 98 01/23/20 15:00 01/23/20 14:52 98 01/23/20 14:24 97 01/23/20 12:25 95 01/23/20 11:43 97 Intake and Output 01/23/20 01/24/20 01/24/20 22:59 06:59 14:59 Intake Total 600 125 480 Balance 600 125 480 Intake: IV 500 Sodium Chloride 0.9% 500 500 ml 500 ml @ 999 mls/hr IV .Q31M STA Rx#:[id number] Oral 100 125 480 GENERAL: The patient is lying in bed and is not in acute distress. CHEST: The heart rate is regular rate rhythm. No murmurs to auscultation. No carotid bruit bilaterally. LUNG: Clear to auscultation bilaterally no wheezing noted throughout. Not labored breathing. ABDOMEN/GI: Bowel sounds present in all 4 quadrants. No tenderness to palpation throughout. NEUROLOGICAL: Higher mental function: The patient is awake, alert, oriented to self, place and time. Patient is following commands. No aphasia and no neglect. Cranial nerves: The pupils are round, equal and reactive to light and accommodation. Visual pandey are full to confrontation throughout. Extraocular movement is intact no nystagmus is noted. Visual acuity 20/25 OU with correction. No head pain to palpation. Facial sensation is normal to touch throughout. The facial strength is normal throughout. Hearing is normal bilaterally to hand rub. Tongue is midline and moved [id number] without any difficulty. No dysarthria is noted. Shoulder shrug is normal bilaterally. Motor: The strength is 5 over 5 throughout. Normal tone and bulk. Cerebellum: Normal finger to nose heel to chin bilaterally. Sensation: Sensation is normal to touch throughout. Reflexes (right/left): 2+ throughtout except ankles are 1+ bilaterally and left knee she has left knee replacement which I could not illicit reflex. Plantars are downgoing bilaterally. Results Lipid profile triglycerides was 237, cholesterol is 242, LDL is 154, HDL is 41. AST is 33, ALTs 20. - Laboratory Findings CBC and BMP: 01/23/20 10:45 01/23/20 10:45 Abnormal Lab Findings: Abnormal Labs 01/23/20 01/23/20 10:45 10:45 Sodium 135 L Glucose 101 H Triglycerides 237 H Cholesterol 242 H LDL Cholesterol, Calc 154 H Assessment and Plan Assessment: This is an 79-year-old female with history of TIA (8-9 years ago and could not see at out both eyes), hypertension, hyperlipidemia, GI bleed (2010) that presented to the emergency department on 01/23/2024 expressive aphasia. On 01/22/2020 she had that difficulty getting her words out, the episode lasted 5- 10 minutes. She denies any associated weakness numbness no slurring of speech. About 20-30 minutes prior to the episode she stated that she had she described as fireworks on the side of both eyes and the episode was brief lasting few seconds she said when she covered one eye that she continued to have that firework on the side of the eye. When she put her sunglasses on the episode resolved. On 01/23/2020 she felt like she had a headache on the left temporal s john of her head and it felt like an ache in and was 4 out of 10, it lasted a couple of hours. Transient ischemic attack Transient Left temporal headache. Hyperlipidemia Hx of remote GI bleed Ex-smoker HTN Plan: TIA CT of the head which was reported as age-related atrophic and chronic small vessel ischemic changes without acute intracranial process seen at this time. CTA of the head and neck was reported as no evident internal carotid artery stenosis no evidence of aneurysm, embolism or dissection the anterior posterior circulation and [place] are patent. Transthoracic echocardiogram: pending. TSH and hemoglobin A1c: pending Lipid profile triglycerides was 237, cholesterol is 242, LDL is 154, HDL is 41. Patient was placed on the aspirin 325 mg but stated she had a hx remote of one GI bleed, so we will start on 81mg instead for secondary stroke prophylaxis. She does not want to be on any statins and wants to address this with her PCP. Target LDL less than 70. -Consider MRI Brain as outpatient. -Follow-up with neurologist as outpatient. Regarding her transient episode of left side of head and seem in temporal area and not associated with vision loss. But day prior had vision disturbance then episode of aphasia. Low on differential is temporal arteritis: -order ESR. IF ESR is normal then no further work-up. Notified her to follow- up with an Ophthamologist. Thank you for the consult. Julian Dueñas MD Neurohospitalist. Time with Patient: Greater than 30
[2020-01-24 22:45] LABS: Hemoglobin A1C 5.4 % (4.0-6.0)
[2020-01-25] MEDS ORDERED: ASPIRIN 81 MG PO SCH (09:00)
--- NOTE | 2020-01-25 10:00 | ECHOF ---
Referral Reason:LVF MEASUREMENTS -------- HEIGHT: 157.5 cm WEIGHT: 70.3 kg BP: 128/68 RVIDd: 2.4 cm (< 3.3) IVSd: 1.2 cm (0.6 - 1.1) LVIDd: 4.0 cm (3.9 - 5.3) LVPWd: 1.0 cm (0.6 - 1.1) IVSs: 1.7 cm LVIDs: 2.9 cm LVPWs: 1.4 cm LAESV Index (A-L): 24.12 ml/m Ao Diam: 3.0 cm (2.0 - 3.7) AV Cusp: 1.8 cm (1.5 - 2.6) MV EXCURSION: 16.901 mm (> 18.000) MV EF SLOPE: 63 mm/s (70 - 150) EPSS: 1.2 cm MV E Johann: 0.52 m/s MV DecT: 145 ms MV A Johann: 0.79 m/s MV E/A Ratio: 0.66 AR PHT: 736 ms RAP: 5.00 mmHg RVSP: 15.80 mmHg FINDINGS -------- Sinus rhythm. This was a techncally difficult study with suboptimal views, , Definity utilized for enhancement of i mages. The left ventricular size is normal. There is mild concentric left ventricular hypertrophy. Overa ll left ventricular systolic function is low-normal with, an EF between 50 - 55 %. The right ventricle is normal in size. Normal LA size by volume 22+/-6 ml/m2. The right atrium was not well visualized. 5.0mg of Lumason was utilized for enhancement of images The aortic valve is trileaflet and appears structurally normal. There is mild aortic regurgitation. Mild mitral annular calcification present. Mild mitral regurgitation is present. The tricuspid valve appears structurally normal. Mild tricuspid regurgitation present. Right vent ricular systolic pressure is normal at < 35 mmHg. The pulmonic valve was not well visualized. There is no pulmonic regurgitation present. The aortic root size is normal. Normal inferior vena cava with normal inspiratory collapse consistent with estimated right atrial pre ssure of 5 mmHg. Echo free space may represent effusion or a pericardial fat pad. CONCLUSIONS -------- 1. This was a techncally difficult study with suboptimal views, , Definity utilized for enhancement o f images. 2. There is mild concentric left ventricular hypertrophy. 3. Overall left ventricular systolic function is low-normal with, an EF between 50 - 55 %. 4. Normal LA size by volume 22+/-6 ml/m2. 5. 5.0mg of Lumason was utilized for enhancement of images 6. There is mild aortic regurgitation. 7. Mild mitral annular calcification present. 8. Mild mitral regurgitation is present. 9. Mild tricuspid regurgitation present. 10. Echo free space may represent effusion or a pericardial fat pad. ADULT CROSSING GUARD: Brittney Koch RDCS
== END 2020-01-24 13:49 | disposition home or self-care (01) ==
LOC: EC 10:04 → 3NCARDOBS 13:23
PROVIDERS: ADMIT Internal Medicine Geriatric Medicine; ATTEND Internal Medicine Geriatric Medicine
DX: G45.9 Transient cerebral ischemic attack, unspecified (principal); R47.01 Aphasia; R51 Headache; I44.7 Left bundle-branch block, unspecified; G89.4 Chronic pain syndrome; Z86.73 Personal history of transient ischemic attack (TIA), and cerebral infarction without residual deficits; K21.9 Gastro-esophageal reflux disease without esophagitis; E78.5 Hyperlipidemia, unspecified; I10 Essential (primary) hypertension; M54.32 Sciatica, left side; M54.31 Sciatica, right side; J34.9 Unspecified disorder of nose and nasal sinuses; M19.90 Unspecified osteoarthritis, unspecified site; Z87.19 Personal history of other diseases of the digestive system; Z90.49 Acquired absence of other specified parts of digestive tract; Z96.652 Presence of left artificial knee joint; Z98.51 Tubal ligation status; Z96.643 Presence of artificial hip joint, bilateral; Z98.890 Other specified postprocedural states; Z98.42 Cataract extraction status, left eye; Z96.1 Presence of intraocular lens; Z87.891 Personal history of nicotine dependence; M81.0 Age-related osteoporosis without current pathological fracture; Z82.49 Family history of ischemic heart disease and other diseases of the circulatory system; U07.1 COVID-19; Z79.83 Long term (current) use of bisphosphonates; Z79.02 Long term (current) use of antithrombotics/antiplatelets; Z79.891 Long term (current) use of opiate analgesic; Z88.5 Allergy status to narcotic agent; Z79.899 Other long term (current) drug therapy; Z88.0 Allergy status to penicillin; Z88.4 Allergy status to anesthetic agent; Z91.012 Allergy to eggs
CPT/HCPCS: 96360; 99285; 36415; 93005; 97161; 80061; 80053; 85652; 84443; 84484; 85025; 85610; 85730; 83036; 71046; 70496; 70450; 70498; G0378 ×2; C8929; U0003; Q9950; Q9967; 93306

== ENCOUNTER 2023-02-01 17:58 | Observation (INO) | payer MEDICARE ==
[2023-02-01 18:09] LABS: Glucose,Whole Blood 107 mg/dL (70-110)
[2023-02-01] MEDS ORDERED: SODIUM CHLORIDE 0.9% 500 ML 500 ML IV STA (18:30)
--- NOTE | 2023-02-01 18:35 | ED ---
Neuro HPI - General Chief Complaint: Neuro Symptoms/Deficit Stated Complaint: Poss stroke Time Seen by Provider: 02/01/23 18:11 Source: patient Mode of arrival: ambulatory Limitations: no limitations - History of Present Illness Is the patient presenting with stroke symptoms?: Yes Last Known Well Date: 02/01/23 Last Known Well Time: 14:00 -: hour(s) Initial Comments: This patient is an 82-year-old woman who family brings to have evaluated for possibility of stroke. Approximately 2 PM the patient's daughter [place] the patient was not able to speak well. She appeared to be having trouble with word finding. There may have been slurred speech as well. The patient's daughter pressed her to be seen in [facility] but she refused. She then reportedly went to the salon where she was having her hair done and she noticed she was having some diplopia particularly when she opened her left eye. In light of that she comes emergency Department for evaluation. She states that the symptoms have resolved. Patient's daughter is at the bedside and states she seems to be at her baseline. Patient also noticed a little bit of bilateral frontal headache that she rates as mild and dull character. She declined analgesic. Location: speech History of same: No Place: outdoors Severity: moderate Improves With: time Worsens With: none Context: sudden onset Treatments Prior to Arrival: none - Related Data Home Medications: Home Medications Medication Instructions Recorded Confirmed Ezetimibe [Zetia] 10 mg PO DAILY 06/27/18 02/01/23 Metoprolol Tartrate [Lopressor] 25 mg PO BID 06/27/18 02/01/23 Multivitamins, Thera [Multivitamin 1 tab PO DAILY 06/27/18 02/01/23 (formulary)] Omeprazole [PriLOSEC] 20 mg PO DAILY 06/27/18 02/01/23 Cholecalciferol (Vitamin D3) 50 mcg PO DAILY 01/23/20 02/01/23 [Vitamin D3] Collagen 1 tab PO DAILY 01/23/20 02/01/23 traMADol HCl [Ultram] 50 mg PO DAILY 01/23/20 02/01/23 Calcium Carbonate [Calcium] 600 mg PO DAILY 02/01/23 02/01/23 Previous Rx's Medication Instructions Recorded Aspirin 81 mg PO DAILY #30 tab 02/03/23 Atorvastatin [Lipitor] 40 mg PO HS #30 tab 02/03/23 Clopidogrel [Plavix] 75 mg PO DAILY #21 tab 02/03/23 Famotidine [Pepcid] 20 mg PO DAILY #30 tab 02/03/23 Allergies/Adverse Reactions: Allergies Allergy/AdvReac Type Severity Reaction Status Date / Time acetaminophen Allergy Nausea Verified 02/01/23 20:31 [From Tylenol-Codeine #3] black walnut Allergy Unknown Verified 02/01/23 20:31 codeine Allergy Nausea Verified 02/01/23 20:31 egg yolk Allergy Unknown Verified 02/01/23 20:31 hydrocodone [From [place]] Allergy hearing Verified 02/01/23 20:31 loss Penicillins Allergy Nausea Verified 02/01/23 20:31 Review of Systems ROS Statement: Those systems with pertinent positive or pertinent negative responses have been documented in the HPI. ROS Other: All systems not noted in ROS Statement are negative. Constitutional: Denies: fever, weakness Eyes: Reports: vision change ENT: Denies: hearing loss Respiratory: Denies: cough, dyspnea Cardiovascular: Denies: chest pain, palpitations Gastrointestinal: Denies: abdominal pain, vomiting, diarrhea Genitourinary: Denies: dysuria, frequency Musculoskeletal: Denies: back pain Skin: Denies: rash Neurological: Reports: headache, confusion. Denies: weakness, numbness General Exam Limitations: no limitations General appearance: alert, in no apparent distress Head exam: Present: atraumatic, normocephalic Eye exam: Present: normal appearance. Absent: scleral icterus, conjunctival injection ENT exam: Present: mucous membranes dry Neck exam: Present: normal inspection, full ROM. Absent: tenderness Respiratory exam: Present: normal lung sounds bilaterally. Absent: respiratory distress, wheezes, rales, rhonchi, stridor Cardiovascular Exam: Present: regular rate, normal rhythm, normal heart sounds. Absent: systolic murmur, diastolic murmur, rubs, gallop GI/Abdominal exam: Present: soft. Absent: distended, tenderness, guarding, rebound, rigid, mass Extremities exam: Present: normal inspection, normal capillary refill. Absent: pedal edema, calf tenderness Back exam: Present: normal inspection. Absent: CVA tenderness (R), CVA tenderness (L) Neurological exam: Present: alert, oriented X3, CN II-XII intact, other (Patient does appear to have mild dysarthria, but family states this is her baseline). Absent: motor sensory deficit Skin exam: Present: warm, dry, intact, normal color. Absent: rash Stroke MDM - Lab Data Result diagrams: 02/01/23 18:35 02/03/23 03:59 Lab Results 02/01/23 02/01/23 02/01/23 Range/Units 18:07 18:35 18:35 WBC 7.5 (3.8-10.6) k/uL RBC 4.76 (3.80-5.40) m/uL Hgb 14.5 (11.4-16.0) gm/dL Hct 42.9 (34.0-46.0) % MCV 90.1 (80.0-100.0) fL MCH 30.4 (25.0-35.0) pg MCHC 33.8 (31.0-37.0) g/dL RDW 14.4 (11.5-15.5) % Plt Count 249 (150-450) k/uL MPV 8.8 Neutrophils % 52 % Lymphocytes % 31 % Monocytes % 6 % Eosinophils % 8 % Basophils % 1 % Neutrophils # 3.9 (1.3-7.7) k/uL Lymphocytes # 2.3 (1.0-4.8) k/uL Monocytes # 0.4 (0-1.0) k/uL Eosinophils # 0.6 (0-0.7) k/uL Basophils # 0.1 (0-0.2) k/uL PT 10.2 (9.0-12.0) sec INR 1.0 (<1.2) APTT 22.0 (22.0-30.0) sec Sodium (137-145) mmol/L Potassium (3.5-5.1) mmol/L Chloride (98-107) mmol/L Carbon Dioxide (22-30) mmol/L Anion Gap mmol/L BUN (7-17) mg/dL Creatinine (0.52-1.04) mg/dL Est GFR (CKD-EPI)AfAm (>60 ml/min/1.73 sqM) Est GFR (CKD-EPI)NonAf (>60 ml/min/1.73 sqM) Glucose (74-99) mg/dL POC Glucose (mg/dL) 107 (70-110) mg/dL POC Glu [employer] Hearing Officer ID Vane Hernandez [address] Glu mg/dL mg/dL Hemoglobin A1c (<=6.0) % Calcium (8.4-10.2) mg/dL Total Bilirubin (0.2-1.3) mg/dL AST (14-36) U/L ALT (4-34) U/L Alkaline Phosphatase (38-126) U/L Creatine Kinase (30-135) U/L Troponin I (0.000-0.034) ng/mL Total Protein (6.3-8.2) g/dL Albumin (3.5-5.0) g/dL TSH (0.465-4.680) mIU/L 02/01/23 02/01/23 02/01/23 Range/Units 18:35 18:35 18:35 WBC (3.8-10.6) k/uL RBC (3.80-5.40) m/uL Hgb (11.4-16.0) gm/dL Hct (34.0-46.0) % MCV (80.0-100.0) fL MCH (25.0-35.0) pg MCHC (31.0-37.0) g/dL RDW (11.5-15.5) % Plt Count (150-450) k/uL MPV Neutrophils % % Lymphocytes % % Monocytes % % Eosinophils % % Basophils % % Neutrophils # (1.3-7.7) k/uL Lymphocytes # (1.0-4.8) k/uL Monocytes # (0-1.0) k/uL Eosinophils # (0-0.7) k/uL Basophils # (0-0.2) k/uL PT (9.0-12.0) sec INR (<1.2) APTT (22.0-30.0) sec Sodium 138 (137-145) mmol/L Potassium 3.4 L (3.5-5.1) mmol/L Chloride 103 (98-107) mmol/L Carbon Dioxide 27 (22-30) mmol/L Anion Gap 8 mmol/L BUN 20 H (7-17) mg/dL Creatinine 0.90 (0.52-1.04) mg/dL Est GFR (CKD-EPI)AfAm 68 (>60 ml/min/1.73 sqM) Est GFR (CKD-EPI)NonAf 59 (>60 ml/min/1.73 sqM) Glucose 97 (74-99) mg/dL POC Glucose (mg/dL) (70-110) mg/dL POC Glu Unemployment Insurance Hearing Officer ID Estimated Ave Glu mg/dL 114 mg/dL Hemoglobin A1c 5.6 (<=6.0) % Calcium 10.4 H (8.4-10.2) mg/dL Total Bilirubin 0.5 (0.2-1.3) mg/dL AST 37 H (14-36) U/L ALT 25 (4-34) U/L Alkaline Phosphatase 58 (38-126) U/L Creatine Kinase 78 (30-135) U/L Troponin I <0.012 (0.000-0.034) ng/mL Total Protein 7.2 (6.3-8.2) g/dL Albumin 4.3 (3.5-5.0) g/dL TSH (0.465-4.680) mIU/L 02/01/23 Range/Units 18:37 WBC (3.8-10.6) k/uL RBC (3.80-5.40) m/uL Hgb (11.4-16.0) gm/dL Hct (34.0-46.0) % MCV (80.0-100.0) fL MCH (25.0-35.0) pg MCHC (31.0-37.0) g/dL RDW (11.5-15.5) % Plt Count (150-450) k/uL MPV Neutrophils % % Lymphocytes % % Monocytes % % Eosinophils % % Basophils % % Neutrophils # (1.3-7.7) k/uL Lymphocytes # (1.0-4.8) k/uL Monocytes # (0-1.0) k/uL Eosinophils # (0-0.7) k/uL Basophils # (0-0.2) k/uL PT (9.0-12.0) sec INR (<1.2) APTT (22.0-30.0) sec Sodium (137-145) mmol/L Potassium (3.5-5.1) mmol/L Chloride (98-107) mmol/L Carbon Dioxide (22-30) mmol/L Anion Gap mmol/L BUN (7-17) mg/dL Creatinine (0.52-1.04) mg/dL Est GFR (CKD-EPI)AfAm (>60 ml/min/1.73 sqM) Est GFR (CKD-EPI)NonAf (>60 ml/min/1.73 sqM) Glucose (74-99) mg/dL POC Glucose (mg/dL) (70-110) mg/dL POC Glu Unemployment Insurance Hearing Officer ID Estimated Ave Glu mg/dL mg/dL Hemoglobin A1c (<=6.0) % Calcium (8.4-10.2) mg/dL Total Bilirubin (0.2-1.3) mg/dL AST (14-36) U/L ALT (4-34) U/L Alkaline Phosphatase (38-126) U/L Creatine Kinase (30-135) U/L Troponin I (0.000-0.034) ng/mL Total Protein (6.3-8.2) g/dL Albumin (3.5-5.0) g/dL TSH 2.880 (0.465-4.680) mIU/L - Medical Decision Making This patient is an 82-year-old woman here with concerns about possible TIA. She did have a period of a fascia prior to arrival here. The symptoms did resolve, and the workup here is negative. The patient be admitted to have neurology consultation - EKG Data -: EKG Interpreted by Me EKG shows normal: sinus rhythm (With occasional PVCs, rate 67 bpm), intervals (NM interval borderline at 205 ms, QRS duration also slightly prolonged at 125 ms, QTC 404 ms.), QRS complexes (There is a left anterior fascicular block.) Rate: normal Past Medical History Past Medical History: CVA/TIA, GERD/Reflux, GI Bleed, Hyperlipidemia, Hypertension, Osteoarthritis (OA) Additional Past Medical History / Comment(s): TIAs, lower GI bleed from diverticulitis, arthritis in multiple joints, low back pain with bilateral sciatica, R hand gout in past, sinus problems. History of Any Multi-Drug Resistant Organisms: None Reported Past Surgical History: Cholecystectomy, Joint Replacement, Orthopedic Surgery, Tubal Ligation Additional Past Surgical History / Comment(s): ORIF rt ankle/has hardware, [place] hip replacements, total L knee arthroplasty, lumbar epidural injections, left cataract removal with lens implants, sinus surgery, colonoscopies. Past Anesthesia/Blood Transfusion Reactions: Previous Problems w/ Anesthesia Additional Past Anesthesia/Blood Transfusion Reaction / Comment(s): had hallucinations from propofol Past Psychological History: No Psychological Hx Reported Smoking Status: Former smoker Past Alcohol Use History: None Reported Past Drug Use History: None Reported - Past Family History Mother Family Medical History: CVA/TIA Additional Family Medical History / Comment(s): Mother lived to be 92 yrs old. Father Family Medical History: No Reported History Additional Family Medical History / Comment(s): Father was healthy and lived to be 98yrs old. Course Vital Signs 02/01/23 02/01/23 02/01/23 18:02 18:20 18:30 Temperature 97.9 F Pulse Rate 67 58 L 60 Respiratory 18 20 14 Rate Blood Pressure 148/64 145/74 148/83 O2 Sat by Pulse 96 98 98 Oximetry 02/01/23 02/01/23 02/01/23 18:40 18:50 19:00 Temperature Pulse Rate 62 60 60 Respiratory 14 16 13 Rate Blood Pressure 128/57 117/55 117/55 O2 Sat by Pulse 97 97 98 Oximetry 02/01/23 02/01/23 02/01/23 19:10 19:15 19:30 Temperature Pulse Rate 58 L 59 L Respiratory 14 15 Rate Blood Pressure 120/61 120/61 119/95 O2 Sat by Pulse 98 100 Oximetry 02/01/23 02/01/23 02/01/23 20:00 20:15 20:30 Temperature Pulse Rate 69 65 64 Respiratory 14 15 21 Rate Blood Pressure 139/68 135/64 130/87 O2 Sat by Pulse 98 98 96 Oximetry 02/01/23 02/01/23 02/01/23 20:45 21:00 22:49 Temperature Pulse Rate 59 L 68 60 Respiratory 12 16 16 Rate Blood Pressure 119/65 125/67 118/63 O2 Sat by Pulse 97 98 97 Oximetry 02/02/23 02/02/23 00:08 05:41 Temperature Pulse Rate 63 72 Respiratory 16 18 Rate Blood Pressure 137/87 135/69 O2 Sat by Pulse 95 Oximetry Disposition Clinical Impression: Dysarthria, Transient cerebral ischemia Disposition: ADMITTED IP TO THIS [facility] Condition: Good
[2023-02-01 18:45] LABS: Basophils # (A) 0.1 k/uL (0-0.2); Basophils % (A) 1 %; Eosinophils # (A) 0.6 k/uL (0-0.7); Eosinophils % (A) 8 %; HCT 42.9 % (34.0-46.0); HGB 14.5 gm/dL (11.4-16.0); Lymphocytes # (A) 2.3 k/uL (1.0-4.8); Lymphocytes % (A) 31 %; MCH 30.4 pg (25.0-35.0); MCHC 33.8 g/dL (31.0-37.0); MCV 90.1 fL (80.0-100.0); Mean Platelet Volume 8.8; Monocytes # (A) 0.4 k/uL (0-1.0); Monocytes % (A) 6 %; Neutrophils # (A) 3.9 k/uL (1.3-7.7); Neutrophils % (A) 52 %; Platelet Count 249 k/uL (150-450); RBC 4.76 m/uL (3.80-5.40); RDW 14.4 % (11.5-15.5); WBC 7.5 k/uL (3.8-10.6)
[2023-02-01 19:02] LABS: Prothrombin Time 10.2 sec (9.0-12.0)
[2023-02-01] MEDS ORDERED: METOPROLOL TARTRATE 25 MG TAB PO STA (19:04)
[2023-02-01 19:20] LABS: ALT 25 U/L (4-34); AST 37 U/L (14-36); African American GFR (CKD) 68 (>60 ml/min/1.73 sqM); Albumin 4.3 g/dL (3.5-5.0); Alkaline Phosphatase 58 U/L (38-126); Anion Gap 8 mmol/L; Blood Urea Nitrogen 20 mg/dL (7-17); Calcium 10.4 mg/dL (8.4-10.2); Carbon Dioxide 27 mmol/L (22-30); Chloride 103 mmol/L (98-107); Creatine Kinase 78 U/L (30-135); Glucose 97 mg/dL (74-99); Non-African American GFR(CKD) 59 (>60 ml/min/1.73 sqM); Potassium 3.4 mmol/L (3.5-5.1); Sodium 138 mmol/L (137-145); Total Bilirubin 0.5 mg/dL (0.2-1.3); Total Protein 7.2 g/dL (6.3-8.2)
--- NOTE | 2023-02-01 19:45 | XR ---
EXAMINATION TYPE: XR chest 2V DATE OF EXAM: 02/01/2023 COMPARISON: 01/23/2020 HISTORY: Shortness of breath TECHNIQUE: Frontal and lateral views of the chest are obtained. FINDINGS: Scattered senescent parenchymal changes noted. Hyperinflation compatible with COPD. No evidence for infiltrate. No evidence for atelectasis. Heart size is stable. Moderate fixed hiatal hernia. Mediastinal structures are stable and grossly unremarkable. No evidence for hilar prominence. Degenerative changes dorsal spine. IMPRESSION: 1. No evidence for acute pulmonary disease.
--- NOTE | 2023-02-01 20:00 | CT ---
EXAMINATION TYPE: CT brain wo con for TPA DATE OF EXAM: 02/01/2023 COMPARISON: 01/23/2020 HISTORY: Neuro deficit, headache CT DLP: 1217.[address] of the brain was performed. The ventricles, basal cisterns and sulci overlying the cerebral convexities demonstrate mild enlargem ent. There is no evidence for intracranial hemorrhage or sulcal effacement. There is decreased attenuation about the periventricular white matter and deep white matter of both c erebral hemispheres, compatible with chronic small vessel ischemia. Differential diagnosis does inclu de demyelination. No mass effects are seen.No midline shift. Osseous calvarium is intact. If symptoms persist consider MRI. IMPRESSION: 1. Age related atrophic and chronic small vessel ischemic change without acute intracranial process s een at this time.
--- NOTE | 2023-02-01 20:10 | CT ---
EXAMINATION TYPE: CT angio head neck DATE OF EXAM: 02/01/2023 COMPARISON: 01/22/2022 HISTORY: Neuro deficit, headache CT DLP: 504.9 mGycm CONTRAST: Performed with IV Contrast, patient injected with 65ml mL of Isovue 370. Combination Contrast CTA cervical carotids and [place] CTA cervical carotids with 3-D recons truction Contrast CTA of the cervical carotids was performed 3-D reconstruction imaging obtained at a separate workstation. Right carotid system: Mild plaque is seen of the right common carotid artery. There is mild plaque a lso noted at the carotid bulb and proximal ICA. No significant diameter reduction. ECA is patent. Right vertebral artery appears unremarkable. Left carotid system: Mild plaque is seen of the left common carotid artery. There is mild plaque als o noted at the carotid bulb and proximal ICA. No significant diameter reduction. ECA is patent. Lef t vertebral artery appears unremarkable. IMPRESSION: 1. No significant diameter reduction to account for the patient's symptoms. CTA [place] with 3-D reconstruction Contrast CTA of the [place] was performed 3-D reconstruction imaging obtained at a separate workstation. Vertebrobasilar system as well as intracranial portions of the internal carotid arteries and their ma [place] tributaries are patent. Atheromatous narrowing distal left MCA. I do not see evidence for sizable aneurysm or vascular malformation. Please note MRI provides greater sensitivity and specificity. V isualized brain appears grossly unremarkable. IMPRESSION: 1. No CT evidence to suggest large vessel occlusion. NASCET criteria was used in interpretation of this exam?
[2023-02-01] MEDS ORDERED: NALOXONE 0.4 MG/ML 1 ML VIAL IV PRN (22:28)
[2023-02-01] MEDS ORDERED: ONDANSETRON 4 MG/2 ML VIAL IVP PRN (22:40)
[2023-02-01] MEDS ORDERED: ACETAMINOPHEN TAB 325 MG TAB PO PRN (22:40)
[2023-02-01] MEDS: SODIUM CHLORIDE 0.9% 1,000 ML IV SCH (22:51)
[2023-02-02] MEDS: FAMOTIDINE 20 MG TAB PO SCH ×2 (09:05→20:15)
[2023-02-02] MEDS ORDERED: POTASSIUM CHLORIDE ER 20 MEQ TAB.ER PO STA (10:00)
[2023-02-02] MEDS ORDERED: traMADol 50 MG TAB PO PRN (10:00)
[2023-02-02] MEDS: CALCIUM CARBONATE 500 MG CHEWABLE PO SCH (10:26)
[2023-02-02] MEDS: METOPROLOL TARTRATE 25 MG TAB PO SCH ×2 (10:26→20:15)
[2023-02-02] MEDS: PANTOPRAZOLE 40 MG TABLET PO SCH (10:26)
[2023-02-02] MEDS: CHOLECALCIFEROL 25 MCG (1000 IU) TABLET PO SCH (10:26)
[2023-02-02] MEDS: EZETIMIBE 10 MG TAB PO SCH (10:26)
[2023-02-02] MEDS: MULTIVITAMINS, THERA 1 EACH TAB PO SCH (10:26)
--- NOTE | 2023-02-02 13:05 | P.HPIM ---
History of Present Illness H&P Date: 02/02/23 This is an 82 year old female with medical history of hypertension, hyperlipidemia, diverticulitis, GI bleed and TIA x2 in the past with no residual deficits. Patient was eating with her daughter yesterday and was noted to have difficulty findings words and slurred speech. Patients daughter wanted patient to come to the ER but she did not. Had a hair appointment and noted to have some double vision of the left eye and came to the ER. Patient also reported a frontal headache wrapping around to the back. All symptoms at this time have currently resolved. Patient had an NIH score of 1 on admission. Initial work up includes brain CT with reveals age related atrophic and chronic small vessel ischemic change without acute intracranial process seen at this time. A chest xray shows no acute pulmonary disease. CT angiography reveals no CT evidence to suggest large vessel occlusion. Unremarkable blood count panel. Potassium low at 3.4, normal kidney function, troponin level is negative, TSH normal at 2.880. Patient was admitted to the hospital with neurology consultation. Patient does report she has not been taking a daily aspirin. An echocardiogram has been ordered. REVIEW OF SYSTEMS: CONSTITUTIONAL: No fever, no malaise, no fatigue. HEENT: No recent visual problems or hearing problems. Denied any sore throat. CARDIOVASCULAR: No chest pain, orthopnea, PND, no palpitations, no syncope. PULMONARY: No shortness of breath, no cough, no hemoptysis. GASTROINTESTINAL: No diarrhea, no nausea, no vomiting, no abdominal pain. NEUROLOGICAL: No headaches, no weakness, no numbness. HEMATOLOGICAL: Denies any bleeding or petechiae. GENITOURINARY: Denies any burning micturition, frequency, or urgency. MUSCULOSKELETAL/RHEUMATOLOGICAL: Denies any joint pain, swelling, or any muscle pain. ENDOCRINE: Denies any polyuria or polydipsia. The rest of the 14-point review of systems is negative. PHYSICAL EXAMINATION: GENERAL: The patient is alert and oriented x3, not in any acute distress. Well developed, well nourished. HEENT: Pupils are round and equally reacting to light. EOMI. No scleral icterus. No conjunctival pallor. Normocephalic, atraumatic. No pharyngeal erythema. No t hyromegaly. CARDIOVASCULAR: S1 and S2 present. No murmurs, rubs, or gallops. PULMONARY: Chest is clear to auscultation, no wheezing or crackles. ABDOMEN: Soft, nontender, nondistended, normoactive bowel sounds. No palpable organomegaly. MUSCULOSKELETAL: No joint swelling or deformity. EXTREMITIES: No cyanosis, clubbing, or pedal edema. NEUROLOGICAL: Gross neurological examination did not reveal any focal deficits. SKIN: No rashes. Assessment Aphasia and slurred speech due to TIA rule out acute ischemic stroke Hx of TIA x 2 with no residual deficits Hypertension Hypercalcemia Hypokalemia Hx of diverticulitis and GI bleed Former Smoker GI prophylaxis DVT prophylaxis Full Code Plan Echocardiogram ordered Neurology consultation Fasting lipid panel ordered for AM Replace potassium and follow up potassium level in AM PT/OT and speech therapy consultation Resume appropriate home medications Patient has been started on aspirin 81 mg daily and lipitor 40 mg HS further recommendations from neurology Patient may benefit from event monitor on discharge to rule out underlying cardiac arrhythmia The impression and plan of care has been dictated by Radha Wilson Nurse Practitioner as directed. Dr. Raj MD I have performed a history and physical examination and medical decision making of this patient, discussed the same with the dictator, and agree with the dictators assessment and plan as written, documented as a scribe. Based on total visit time, I have performed more than 50% of this visit. Past Medical History Past Medical History: CVA/TIA, GERD/Reflux, GI Bleed, Hyperlipidemia, Hypertension, Osteoarthritis (OA) Additional Past Medical History / Comment(s): TIAs, lower GI bleed from diverticulitis, arthritis in multiple joints, low back pain with bilateral sciatica, R hand gout in past, sinus problems. History of Any Multi-Drug Resistant Organisms: None Reported Past Surgical History: Cholecystectomy, Joint Replacement, Orthopedic Surgery, Tubal Ligation Additional Past Surgical History / Comment(s): ORIF rt ankle/has hardware, [place] hip replacements, total L knee arthroplasty, lumbar epidural injections, left cataract removal with lens implants, sinus surgery, colonoscopies. Past Anesthesia/Blood Transfusion Reactions: Previous Problems w/ Anesthesia Additional Past Anesthesia/Blood Transfusion Reaction / Comment(s): had hallucinations from propofol Past Psychological History: No Psychological Hx Reported Smoking Status: Former smoker Past Alcohol Use History: None Reported Past Drug Use History: None Reported - Past Family History Mother Family Medical History: CVA/TIA Additional Family Medical History / Comment(s): Mother lived to be 92 yrs old. Father Family Medical History: No Reported History Additional Family Medical History / Comment(s): Father was healthy and lived to be 98yrs old. Medications and Allergies Home Medications Medication Instructions Recorded Confirmed Type Ezetimibe [Zetia] 10 mg PO DAILY 06/27/18 02/01/23 History Metoprolol Tartrate [Lopressor] 25 mg PO BID 06/27/18 02/01/23 History Multivitamins, Thera [Multivitamin 1 tab PO DAILY 06/27/18 02/01/23 History (formulary)] Omeprazole [PriLOSEC] 20 mg PO DAILY 06/27/18 02/01/23 History Cholecalciferol (Vitamin D3) 50 mcg PO DAILY 01/23/20 02/01/23 History [Vitamin D3] Collagen 1 tab PO DAILY 01/23/20 02/01/23 History Triamterene-Hctz 37.5-25Mg 1 cap PO DAILY 01/23/20 02/01/23 History [Dyazide 37.5-25 Capsule] traMADol HCl [Ultram] 50 mg PO DAILY 01/23/20 02/01/23 History Calcium Carbonate [Calcium] 600 mg PO DAILY 02/01/23 02/01/23 History Allergies Allergy/AdvReac Type Severity Reaction Status Date / Time acetaminophen Allergy Nausea Verified 02/01/23 20:31 [From Tylenol-Codeine #3] black walnut Allergy Unknown Verified 02/01/23 20:31 codeine Allergy Nausea Verified 02/01/23 20:31 egg yolk Allergy Unknown Verified 02/01/23 20:31 hydrocodone [From [place]] Allergy hearing Verified 02/01/23 20:31 loss Penicillins Allergy Nausea Verified 02/01/23 20:31 Physical Exam Vitals: Vital Signs Temp Pulse Pulse Resp BP BP Pulse Ox 02/02/23 07:39 98.1 F 74 14 129/71 97 02/02/23 05:41 72 18 135/69 95 02/02/23 00:08 63 16 137/87 02/01/23 22:49 60 16 118/63 97 02/01/23 21:00 68 16 125/67 98 02/01/23 20:45 59 L 12 119/65 97 02/01/23 20:30 64 21 130/87 96 02/01/23 20:15 65 15 135/64 98 02/01/23 20:00 69 14 139/68 98 02/01/23 19:30 119/95 02/01/23 19:15 59 L 15 120/61 100 02/01/23 19:10 58 L 14 120/61 98 02/01/23 19:00 60 13 117/55 98 02/01/23 18:50 60 16 117/55 97 02/01/23 18:40 62 14 128/57 97 02/01/23 18:30 60 14 148/83 98 02/01/23 18:20 58 L 20 145/74 98 02/01/23 18:02 97.9 F 67 18 148/64 96 Intake and Output 02/01/23 02/02/23 02/02/23 22:59 06:59 14:59 Intake Total 118 Balance 118 Intake: Oral 118 Other: Weight 74.843 kg Results CBC & Chem 7: 02/01/23 18:35 02/01/23 18:35 Labs: Abnormal Lab Results - Last 24 Hours (Table) 02/01/23 Range/Units 18:35 Potassium 3.4 L (3.5-5.1) mmol/L BUN 20 H (7-17) mg/dL Calcium 10.4 H (8.4-10.2) mg/dL AST 37 H (14-36) U/L Assessment and Plan Time with Patient: Less than 30
[2023-02-02] MEDS: SODIUM CHLORIDE 0.9% 1,000 ML IV SCH (13:58)
[2023-02-02] MEDS: ASPIRIN 81 MG PO SCH (14:42)
[2023-02-02] MEDS: CLOPIDOGREL 75 MG TAB PO SCH (17:20)
--- NOTE | 2023-02-02 19:34 | P.CNNES ---
History of Present Illness Consult date: 02/02/23 Requesting physician: Tru Barkley Reason for Consult: Aphasia, TIA History of Present Illness: Patient is an 82-year-old right-handed female with history of hypertension, hyperlipidemia, previous TIAs, came to the hospital for possible TIA. Yesterday patient was with her daughter in the [employer] shop having hair done, when she noticed some blurred vision in the left eye at around 2 PM. The letters were not clear. She believes that it was only with the left eye. The symptoms lasted for about 5 minutes and then went away. At around 2:30 PM, she went to the [employer] shop with her daughter, when she developed new neurological symptoms including speech difficulty. Patient's daughter noticed that she could not put sentences together, she was trying hard and the words would not come out, and did not make sense. Patient declined to go to the hospital, instead went home. Patient's son noticed at that time that she has some droopy face. Patient at that time also started having biparietal headache, which was aching, 4/10. The speech difficulty lasted for about 20-30 minutes and then went away. Patient denies any focal weakness, numbness or any worsening of her baseline balance. She does not have good balance to begin with. She uses cane sometimes. Patient still complaining of headache involving top of the head in the parietal region, and rates it 4/10. No nausea vomiting. No previous history of migraines. Vital signs on arrival blood pressure 148/64, pulse rate 67 temperature 97.9. Blood test shows normal CBC, PT/PTT, electrolytes are normal with potassium 3.4. AST borderline 37 with normal ALT 25. Troponin, CK normal. TSH normal. CT head revealed age-related atrophic and chronic small vessel ischemic change without acute intracranial process. I personally reviewed CT head, agree with the findings. EKG shows sinus rhythm. Chest x-ray showed no acute process. Patient has history of smoking 1 pack per week for 20 years, quit 35 years ago. She drinks very occasionally, light drinker. Patient has hypertension and hyperlipidemia but denies diabetes. Patient has history of TIA on 01/24/2020, when she was seen by Dr. Julian Dueñas and patient presented with transient expressive aphasia lasting for about 5-10 minutes. Patient was recommended to take aspirin 81 mg daily. However she is currently not on any antiplatelet medication or aspirin. Patient has hyperlipidemia, cannot tolerate statins because of muscle pain. She is on Zetia. Patient states that she has history of another TIA 5 years prior, when she developed transient complete vision loss that lasted for about 4 minutes. No history of migraines. Patient does have history of neuropathy in the feet. Review of Systems Constitutional: Denies chills, Denies fever Eyes: left blurred vision, denies diplopia, denies loss of peripheral vision, denies loss of vision Ears: bilateral: decreased hearing, deny: tinnitus Ears, nose, mouth and throat: Reports headache, Denies sore throat Cardiovascular: Denies chest pain, Denies shortness of breath Respiratory: Reports cough (occasionally), Denies excessive sputum Gastrointestinal: Denies abdominal pain, Denies diarrhea, Denies nausea, Denies vomiting Genitourinary: Denies dysuria, Denies hematuria Musculoskeletal: Reports low back pain, Denies myalgias, Denies neck pain Integumentary: Denies pruritus, Denies rash Neurological: Reports as per HPI Psychiatric: Reports anxiety, Reports depression Endocrine: Denies fatigue, Denies weight change Hematologic/Lymphatic: Denies easy bleeding, Denies easy bruising Past Medical History Past Medical History: CVA/TIA, GERD/Reflux, GI Bleed, Hyperlipidemia, Hypertension, Osteoarthritis (OA) Additional Past Medical History / Comment(s): TIAs, lower GI bleed from diverticulitis, arthritis in multiple joints, low back pain with bilateral sciatica, R hand gout in past, sinus problems. History of Any Multi-Drug Resistant Organisms: None Reported Past Surgical History: Cholecystectomy, Joint Replacement, Orthopedic Surgery, Tubal Ligation Additional Past Surgical History / Comment(s): ORIF rt ankle/has hardware, [place] hip replacements, total L knee arthroplasty, lumbar epidural injections, left cataract removal with lens implants, sinus surgery, colonoscopies. Past Anesthesia/Blood Transfusion Reactions: Previous Problems w/ Anesthesia Additional Past Anesthesia/Blood Transfusion Reaction / Comment(s): had hallucinations from propofol Past Psychological History: No Psychological Hx Reported Smoking Status: Former smoker Past Alcohol Use History: None Reported Past Drug Use History: None Reported - Past Family History Mother Family Medical History: CVA/TIA Additional Family Medical History / Comment(s): Mother lived to be 92 yrs old. Father Family Medical History: No Reported History Additional Family Medical History / Comment(s): Father was healthy and lived to be 98yrs old. Medications and Allergies Home Medications Medication Instructions Recorded Confirmed Type Ezetimibe [Zetia] 10 mg PO DAILY 06/27/18 02/01/23 History Metoprolol Tartrate [Lopressor] 25 mg PO BID 06/27/18 02/01/23 History Multivitamins, Thera [Multivitamin 1 tab PO DAILY 06/27/18 02/01/23 History (formulary)] Omeprazole [PriLOSEC] 20 mg PO DAILY 06/27/18 02/01/23 History Cholecalciferol (Vitamin D3) 50 mcg PO DAILY 01/23/20 02/01/23 History [Vitamin D3] Collagen 1 tab PO DAILY 01/23/20 02/01/23 History Triamterene-Hctz 37.5-25Mg 1 cap PO DAILY 01/23/20 02/01/23 History [Dyazide 37.5-25 Capsule] traMADol HCl [Ultram] 50 mg PO DAILY 01/23/20 02/01/23 History Calcium Carbonate [Calcium] 600 mg PO DAILY 02/01/23 02/01/23 History Allergies Allergy/AdvReac Type Severity Reaction Status Date / Time acetaminophen Allergy Nausea Verified 02/01/23 20:31 [From Tylenol-Codeine #3] black walnut Allergy Unknown Verified 02/01/23 20:31 codeine Allergy Nausea Verified 02/01/23 20:31 egg yolk Allergy Unknown Verified 02/01/23 20:31 hydrocodone [From [place]] Allergy hearing Verified 02/01/23 20:31 loss Penicillins Allergy Nausea Verified 02/01/23 20:31 Physical Examination - Vital Signs Vital Signs: Vital Signs Temp Pulse Pulse Resp BP BP Pulse Ox 02/02/23 15:00 98.2 F 61 14 114/55 95 02/02/23 07:39 98.1 F 74 14 129/71 97 02/02/23 05:41 72 18 135/69 95 02/02/23 00:08 63 16 137/87 02/01/23 22:49 60 16 118/63 97 02/01/23 21:00 68 16 125/67 98 02/01/23 20:45 59 L 12 119/65 97 02/01/23 20:30 64 21 130/87 96 02/01/23 20:15 65 15 135/64 98 02/01/23 20:00 69 14 139/68 98 02/01/23 19:30 119/95 02/01/23 19:15 59 L 15 120/61 100 02/01/23 19:10 58 L 14 120/61 98 02/01/23 19:00 60 13 117/55 98 02/01/23 18:50 60 16 117/55 97 02/01/23 18:40 62 14 128/57 97 02/01/23 18:30 60 14 148/83 98 02/01/23 18:20 58 L 20 145/74 98 02/01/23 18:02 97.9 F 67 18 148/64 96 Intake and Output 02/02/23 02/02/23 02/02/23 06:59 14:59 22:59 Intake Total 118 Balance 118 Intake: Oral 118 Other: Voiding Method Toilet # Voids 4 # Bowel Movements 4 Patient is an elderly female, very pleasant, in no acute distress. Patient is alert awake oriented to time place and person. Speech and language functions are normal. Patient can name and repeat very well. No aphasia or dysarthria. Attention, concentration and fund of knowledge is adequate. On cranial nerve examination, pupils are equal, round and reacting to light, visual pandey are full on confrontation, with no neglect on double simultaneous stimulation. Extraocular muscles are intact with no nystagmus. Face is symmetric, tongue protrudes to the midline. Palatal elevation and sensation normal, hearing is moderately decreased and shoulder shrug normal, facial s ensation normal. On muscle strength testing, there is no pronator drift and the strength is juan jose l in arms and legs distally and proximally. Deep tendon reflexes are symmetric 1 at the biceps, 1 brachioradialis, trace at the knees, 1 at ankles and plantars downgoing bilaterally. Sensory to touch is equal with no neglect on double simultaneous stimulation. Cerebellar function showed no ataxia for [id number] testing. No dysdiadochokinesia. No ataxia for [id number] testing on either side. Tone and bulk of muscles normal. Gait deferred.. On general examination, there is no carotid bruit or murmur, S1-S2 audible. Chest is clear on consultation. Abdomen is soft nontender. No organomegaly, bowel sounds present. Peripheral pulses are present. No edema. Results - Laboratory Findings CBC and BMP: 02/01/23 18:35 02/01/23 18:35 Abnormal Lab Findings: Abnormal Labs 02/01/23 18:35 Potassium 3.4 L BUN 20 H Calcium 10.4 H AST 37 H Assessment and Plan Assessment: * TIA, manifesting with transient blurred vision left eye, that lasted for about 5 minutes. Subsequently patient had another TIA manifesting with aphasia, that lasted for 20-30 minutes. Patient has history of TIA 2 in the past, but currently not taking any antiplatelet medication. * Cephalalgia, unclear cause, possibly due to TIA. No previous history of migraines. Patient's current NIH stroke scale is 0. * Hypertension * Hyperlipidemia * X tobacco use * Hard of hearing Plan: * Patient has presented with TIA. Patient was not taking any antiplatelet medication at home (despite being instructed with the last TIA on 01/24/2020). * Patient to be placed on dual antiplatelet medication for 21 days, and then stop Plavix and continue aspirin indefinitely. * MRI of the brain without contrast, evaluate for acute CVA * 2-D echo has been completed, results still pending. * CTA head and neck showed: No significant diameter reduction to account for the patient's symptoms. No CT evidence to suggest large vessel occlusion. * EEG, rule out focal epileptiform activity. * Fasting a.m. lipid panel. Patient has hyperlipidemia, currently on Zetia. She believes that she is on another medication as well for cholesterol but not statins. Patient's family will let us know the name of the medication in the morning. * Hemoglobin A1c * Blood pressure is well controlled. * Close neuro checks. * Telemetry monitoring rule out any arrhythmia * DVT prophylaxis: Heparin 5000 units subcu every 12 hours * Neurology will continue ot follow. Thank you for the consult.
[2023-02-02] MEDS: HEPARIN SODIUM,PORCINE/PF 5,000 UNIT/0.5 ML SYRINGE SQ SCH (20:15)
[2023-02-02] MEDS ORDERED: ATORVASTATIN 40 MG TAB PO SCH (21:00)
--- NOTE | 2023-02-02 21:28 | MR ---
EXAMINATION TYPE: MR brain wo con DATE OF EXAM: 02/02/2023 COMPARISON: 02/01/2023 CT brain HISTORY: TIA CONTRAST: Performed utilizing 0 mL intravenous Gadavist gadolinium contrast. TECHNIQUE: Multiplanar, multiecho imaging on a 3.0 Myrna magnet is performed through the brain. Stud y is performed within 24 hours of arrival to the hospital. The craniovertebral junction is normal. The pituitary is normal. Diffusion-weighted imaging is performed. No abnormal hyperintensity is present to suggest an acute i ntracranial infarct or acute ischemic change. No significant signal abnormality within the brain is evident. Couple of punctate white matter change s may be within the irizarry radiata bilaterally. Ventricles and sulci are appropriate for the patient age. Some fluid may be within the mastoid air cells. Mild mastoiditis could be considered. IMPRESSIONS: 1. MRI brain appears within normal limits. No acute intracranial process radiographically apparent.
[2023-02-03] MEDS: PANTOPRAZOLE 40 MG TABLET PO SCH (05:41)
--- NOTE | 2023-02-03 07:36 | CA ---
Transthoracic Echo Report Name: Maral Zhou Age: 82 Gender: F : 1940 Exam Date: 02/02/2023 13:41 Exam Location: [facility] Ht (in): 64 Wt (lb): 165 Ordering Physician: Radha Wilson Attending/Referring Phys: Steve GUNN [employer] Nina Gama [facility] Procedure CPT: Indications: tia Cardiac Hx: Technical Quality: Technically difficult study Contrast 1: Lumason Total Dose (mL): 5 Contrast 2: Total Dose (mL): MEASUREMENTS (Male / Female) Normal Values 2D ECHO LV Diastolic Diameter PLAX 4.4 cm 4.2 - 5.9 / 3.9 - 5.3 cm LV Systolic Diameter PLAX 2.9 cm IVS Diastolic Thickness 0.8 cm 0.6 - 1.0 / 0.6 - 0.9 cm LVPW Diastolic Thickness 1.0 cm 0.6 - 1.0 / 0.6 - 0.9 cm LV Relative Wall Thickness 0.4 LVOT Diameter 2.0 cm Ascending Aorta Diameter 3.5 cm M-MODE Aortic Root Diameter MM 3.1 cm LA Systolic Diameter MM 2.7 cm LA Ao Ratio MM 0.9 AV Cusp Separation MM 2.0 cm DOPPLER AV Peak Velocity 138.7 cm/s AV Peak Gradient 7.7 mmHg AV Mean Velocity 101.8 cm/s AV Mean Gradient 4.5 mmHg AV Velocity Time Integral 32.1 cm LVOT Peak Velocity 92.7 cm/s LVOT Peak Gradient 3.4 mmHg LVOT Velocity Time Integral 19.9 cm LVOT Stroke Volume 64.9 cm??? LVOT Stroke Volume Index 36.0 ml/m??? LVOT Cardiac Index 2443.5 cm???/min???m??? AV Area Cont Eq vti 2.0 cm??? AV Area Cont Eq pk 2.2 cm??? Mitral E Point Velocity 70.0 cm/s Mitral A Point Velocity 86.8 cm/s Mitral E to A Ratio 0.8 MV Deceleration Time 352.8 ms LV E' Lateral Velocity 7.0 cm/s Mitral E to LV E' Lateral Ratio 10.0 LV E' Septal Velocity 4.6 cm/s Mitral E to LV E' Septal Ratio 15.1 TR Peak Velocity 236.0 cm/s TR Peak Gradient 22.3 mmHg Right Atrial Pressure 3.0 mmHg Pulmonary Artery Systolic Pressu 25.3 mmHg Right Ventricular Systolic Press 25.3 mmHg FINDINGS Left Ventricle Normal Left ventricular size, wall thickness, systolic function with no obvious regional wall motion abnormalities. Left ventricular ejection fraction is estimated at 50-55%. Low normal global left ventricular systolic function. Right Ventricle Right ventricle not well visualized. Right Atrium Right atrium not well visualized. Left Atrium Mild left atrial dilatation. Mitral Valve Structurally normal mitral valve. Mild mitral regurgitation. Aortic Valve Trileaflet aortic valve. Mild aortic regurgitation. Tricuspid Valve Structurally normal tricuspid valve. Mild tricuspid regurgitation. Pulmonic Valve Structurally normal pulmonic valve. Trace pulmonic regurgitation. Pericardium No pericardial effusion. Aorta Normal size aortic root and proximal ascending aorta. CONCLUSIONS 1. Normal left ventricular size with borderline left ventricle systolic function 2. Mild mitral, aortic and tricuspid regurgitation with no evidence of pulmonary hypertension Previewed by: Dr. Sheila Ferrara MD (Electronically Signed) Final Date: 03 February 2023 07:35
[2023-02-03 08:35] VITALS: BP 138/67; PULSE 77; RESP 16; TEMP 97.7
[2023-02-03 08:59] LABS: BUN/Creat Ratio 14.12 Ratio (12.00-20.00); Blood Urea Nitrogen 11.3 mg/dL (9.0-27.0); Calcium 10.1 mg/dL (8.7-10.3); Carbon Dioxide 22.7 mmol/L (21.6-31.8); Chloride 109 mmol/L (96-109); Glucose 93 mg/dL (70-110); LDL Cholesterol,Calculated 120.8 mg/dL (0.0-131.0); Potassium 4.2 mmol/L (3.5-5.5); Sodium 142 mmol/L (135-145)
[2023-02-03] MEDS: CLOPIDOGREL 75 MG TAB PO SCH (10:30)
[2023-02-03] MEDS: CHOLECALCIFEROL 25 MCG (1000 IU) TABLET PO SCH (10:36)
[2023-02-03] MEDS: FAMOTIDINE 20 MG TAB PO SCH (10:36)
[2023-02-03] MEDS: CALCIUM CARBONATE 500 MG CHEWABLE PO SCH (10:38)
[2023-02-03] MEDS: ASPIRIN 81 MG PO SCH (10:38)
[2023-02-03] MEDS: METOPROLOL TARTRATE 25 MG TAB PO SCH (10:38)
[2023-02-03] MEDS: EZETIMIBE 10 MG TAB PO SCH (10:38)
[2023-02-03] MEDS: MULTIVITAMINS, THERA 1 EACH TAB PO SCH (10:38)
[2023-02-03] MEDS: HEPARIN SODIUM,PORCINE/PF 5,000 UNIT/0.5 ML SYRINGE SQ SCH (10:39)
--- NOTE | 2023-02-03 11:55 | EEG ---
ELECTROENCEPHALOGRAM REPORT PREAMBLE: This is an 82-year-old female with transient aphasia. She had a similar presentation a couple of years ago. Rule out any seizure activity. EEG FINDINGS: This is a 21-channel digital EEG recorded with video component, utilizing 10/20 international system with referential and bipolar montages. Background consists of well developed, well regulated moderate voltage activity in 8 to 9 hertz alpha. Background is posterior dominant and reactive to eye opening and closing. Very frequent intermittent bitemporal slowing in the delta range was seen, independently, or synchronous, left more than right. No clear-cut epileptiform activity was seen. Photic driving response was not seen. No electrographic seizure was recorded. Different stages of sleep were not seen. IMPRESSION: This is an abnormal EEG due to intermittent slowing in bitemporal region, left more than right, suggestive of focal cortical neuronal dysfunction. No obvious epileptiform activity was seen. If your suspicion for seizures is high, suggest prolonged, sleep- deprived EEG for further evaluation. MMODL / IJN: [id number] /
--- NOTE | 2023-02-03 12:44 | P.PN ---
Subjective Progress Note Date: 02/03/23 Patient was seen for a follow-up. Patient is ready to go home. She is already dressed up. No new symptoms. Objective - Vital Signs Vital signs: Vital Signs Temp 97.7 F 02/03/23 07:15 Pulse 77 02/03/23 07:15 Resp 16 02/03/23 07:15 BP 138/67 02/03/23 07:15 Pulse Ox 97 02/03/23 07:35 FiO2 Intake & Output 02/02/23 02/03/23 02/03/23 18:59 06:59 18:59 Intake Total 118 Balance 118 Weight 74.843 kg Intake: Oral 118 Other: Voiding Method Toilet Toilet Toilet # Voids 4 2 # Bowel Movements 4 - Exam Examination nonfocal. Speech and language functions normal. Her hearing is decreased, which is chronic. - Labs CBC & Chem 7: 02/01/23 18:35 02/03/23 03:59 Labs: Abnormal Lab Results - Last 24 Hours (Table) 02/03/23 Range/Units 03:59 Triglycerides 160.00 H (0.00-149.00) mg/dL Assessment and Plan Assessment: * TIA, manifesting with transient blurred vision left eye, that lasted for about 5 minutes. Subsequently patient had another TIA manifesting with aphasia, that lasted for 20-30 minutes. Patient has history of TIA 2 in the past, but currently not taking any antiplatelet medication. * Cephalalgia, unclear cause, possibly due to TIA. No previous history of migraines. Patient's current NIH stroke scale is 0. * Hypertension * Hyperlipidemia * X tobacco use * Hard of hearing Plan: * Patient has presented with TIA. Patient was not taking any antiplatelet medication at home (despite being instructed with the last TIA on 01/24/2020). * Patient to be placed on dual antiplatelet medication for 21 days, and then stop Plavix and continue aspirin indefinitely. * MRI of the brain without contrast is normal. No acute intracranial process. I personally reviewed MRI, I agree with the findings. * 2-D echo revealed normal left ventricular size, wall thickness and systolic function with EF 50-55%. Low normal global left ventricular systolic function. Mild left atrial dilation. Mild MR, mild AR. No embolic source. * CTA head and neck showed: No significant diameter reduction to account for the patient's symptoms. No CT evidence to suggest large vessel occlusion. * EEG was performed, which was abnormal due to intermittent slowing in bitemporal region, left more than right, suggestive of focal cortical neuronal dysfunction. No obvious epileptiform activity was seen. If your suspicion for seizures is high, suggest prolonged, sleep deprived EEG for further evaluation. * At this time, suspicion for seizures is low. I informed patient that if she continues to have recurrent speech difficulty, then may need prolonged EEG testing. * Fasting a.m. lipid panel with cholesterol 193, LDL 120, HDL 40 and triglycerides 160. Target LDL < 70. Patient currently on Zetia. She does not want to be on statins because of musculoskeletal side effects. She believes that she is on another medication as well for cholesterol but not statins. Patient will follow up with her primary physician regarding dyslipidemia. * Hemoglobin A1c 5.6 * Blood pressure is well controlled. * Telemetry monitoring rule out any arrhythmia * Neurologically clear for discharge.
--- NOTE | 2023-02-05 16:12 | P.DS ---
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 Patient is refusing Lipitor on discharge and would like to continue with her zetia and follow-up with her PCP Dr. Baker for further recommendations regarding cholesterol control. Additionally patient is recommended to take Plavix 75 mg daily for 3 weeks as well as aspirin 81 mg daily. Recommending to stop Plavix after 21 days and continue on aspirin indefinitely patient . Patient has refused the Plavix therapy. Blood pressure medication has been discontinued on discharge his blood pressure is low normal at recommending to follow-up with PCP and check blood pressure at home. Patient to repeat a BMP in 2-3 days. Hospital course This is an 82 year old female with medical history of hypertension, hyperlipidemia, diverticulitis, GI bleed and TIA x2 in the past with no residual deficits. Patient was eating with her daughter yesterday and was noted to have difficulty findings words and slurred speech. Patients daughter wanted patient to come to the ER but she did not. Had a hair appointment and noted to have some double vision of the left eye and came to the ER. Patient also reported a frontal headache wrapping around to the back. All symptoms at this time have currently resolved. Patient had an NIH score of 1 on admission. Initial work up includes brain CT with reveals age related atrophic and chronic small vessel ischemic change without acute intracranial process seen at this time. A chest xray shows no acute pulmonary disease. CT angiography reveals no CT evidence to suggest large vessel occlusion. Unremarkable blood count panel. Potassium low at 3.4, normal kidney function, troponin level is negative, TSH normal at 2.880. Patient was admitted to the hospital with neurology consultation. Patient does report she has not been taking a daily aspirin. Echocardiogram shows normal LV size with borderline left ventricle systolic function with mild mitral aortic and tricuspid regurgitation with no evidence of pulmonary hypertension. MRI of the brain appears within normal limits is no acute intracranial process radiographically apparent. She also had an EEG done which reveals intermittent slowing and bitemporal region left or the right suggestive of focal cortical neuron dysfunction there is no obvious epileptiform activity seen. Neurology has signed up with patient and felt patient had another TIA manifesting with aphasia as well as blurry vision to the left eye possibly headache as well. Symptoms have completey resolved and patient is asking to go home neurologically she is clear. hemoglobin A1C 5.6, calcium 10.4 and 10.1, triglycerides is 160, TSH 2.880. She is denying chest pain, denying shortness of breath, lungs are clear S1 S2 auscultated abdomen is soft and nontender focal neurological exam is negative. Please see medication reconciliation for a list of current medication. Thank you for allowing us to participate in the care of this patient. The impression and plan of care has been dictated by Radha Wilson, Nurse Practitioner as directed. Dr. Raj MD I have performed a history and physical examination and medical decision making of this patient, discussed the same with the dictator, and agree with the di ctators assessment and plan as written, documented as a scribe. Based on total visit time, I have performed more than 50% of this visit. Patient Condition at Discharge: Stable Plan - Discharge Summary Discharge Rx Participant: No New Discharge Prescriptions: New Atorvastatin [Lipitor] 40 mg PO HS #30 tab Famotidine [Pepcid] 20 mg PO DAILY #30 tab Aspirin 81 mg PO DAILY #30 tab Clopidogrel [Plavix] 75 mg PO DAILY #21 tab Continue Multivitamins, Thera [Multivitamin (formulary)] 1 tab PO DAILY Ezetimibe [Zetia] 10 mg PO DAILY Omeprazole [PriLOSEC] 20 mg PO DAILY Metoprolol Tartrate [Lopressor] 25 mg PO BID Collagen 1 tab PO DAILY Cholecalciferol (Vitamin D3) [Vitamin D3] 50 mcg PO DAILY traMADol HCl [Ultram] 50 mg PO DAILY Calcium Carbonate [Calcium] 600 mg PO DAILY Discontinued Triamterene-Hctz 37.5-25Mg [Dyazide 37.5-25 Capsule] 1 cap PO DAILY Discharge Medication List Ezetimibe [Zetia] 10 mg PO DAILY 06/27/18 [History] Metoprolol Tartrate [Lopressor] 25 mg PO BID 06/27/18 [History] Multivitamins, Thera [Multivitamin (formulary)] 1 tab PO DAILY 06/27/18 [History] Omeprazole [PriLOSEC] 20 mg PO DAILY 06/27/18 [History] Cholecalciferol (Vitamin D3) [Vitamin D3] 50 mcg PO DAILY 01/23/20 [History] Collagen 1 tab PO DAILY 01/23/20 [History] traMADol HCl [Ultram] 50 mg PO DAILY 01/23/20 [History] Calcium Carbonate [Calcium] 600 mg PO DAILY 02/01/23 [History] Aspirin 81 mg PO DAILY #30 tab 02/03/23 [Rx] Atorvastatin [Lipitor] 40 mg PO HS #30 tab 02/03/23 [Rx] Clopidogrel [Plavix] 75 mg PO DAILY #21 tab 02/03/23 [Rx] Famotidine [Pepcid] 20 mg PO DAILY #30 tab 02/03/23 [Rx] Follow up Appointment(s)/Referral(s): Garret Baker MD [Primary Care Provider] - 1-2 days Ambulatory/Diagnostic Orders: Basic Metabolic Panel [LAB.AMB] Time Frame: 3 Days, Location: None Selected Activity/Diet/Wound Care/Special Instructions: Recommend to continue on dual antiplatelet therapy with aspirin 81 mg daily and plavix 75 mg daily, after 21 days discontinue plavix and continue on aspirin daily indefinitely. Recommend to establish care and follow up with a neurologist outpatient Discharge Disposition: HOME SELF-CARE
== END 2023-02-03 12:48 | disposition home or self-care (01) ==
LOC: EC 17:58 → 6NMEDSUR 22:42
PROVIDERS: ADMIT Hospitalist; ATTEND Hospitalist
DX: I69.320 Aphasia following cerebral infarction (principal); I10 Essential (primary) hypertension; E83.52 Hypercalcemia; E87.6 Hypokalemia; Z86.73 Personal history of transient ischemic attack (TIA), and cerebral infarction without residual deficits; E78.5 Hyperlipidemia, unspecified; G62.9 Polyneuropathy, unspecified; Z87.891 Personal history of nicotine dependence; Z87.19 Personal history of other diseases of the digestive system; R29.701 NIHSS score 1; I67.89 Other cerebrovascular disease; I08.2 Rheumatic disorders of both aortic and tricuspid valves; Z79.891 Long term (current) use of opiate analgesic; Z79.899 Other long term (current) drug therapy
CPT/HCPCS: 96372; 96360; 99285; 36415; 94760; 95816; 93005; 97161; 97165; 80061; 80053; 80048; 84443; 82550; 84484; 85025; 85610; 85730; 83036; 71046; 70496; 70450; 70498; 70551; G0378 ×3; C8929; Q9950; Q9967; J1644; 93306

== ENCOUNTER → 2023-02-21 | Outpatient (CLI) | payer MEDICARE ==
--- NOTE | 2023-03-26 01:28 | EM ---
EVENT MONITOR The patient was monitored between February 21, 2023 and March 22, 2023. The rhythm strip revealed a sinus mechanism with evidence of ventricular ectopic activity with single PVCs as well as couplets and triplets. No atrial fibrillation was noted. No pauses were noted. LUZ ELENA / NORBERTO: [id number] /
== END | disposition home or self-care (01) ==
LOC: RADECHMAIN 08:05
PROVIDERS: ATTEND Internal Medicine Geriatric Medicine
DX: I49.9 Cardiac arrhythmia, unspecified (principal)
CPT/HCPCS: 93270

== ENCOUNTER → 2023-10-24 | Outpatient (CLI) | payer MEDICARE ==
--- NOTE | 2023-10-25 10:28 | CT ---
EXAMINATION TYPE: CT sinus wo con DATE OF EXAM: 10/24/2023 COMPARISON: 12/02/2016 HISTORY: sinusitis CT DLP: 632 mGycm CONTRAST: 0 mL of Isovue 300 The paranasal sinuses are examined in the axial plane at 2 mm thick sections. Reconstructed images i n the coronal plane were obtained. There is dental amalgam scatter artifact Minimal mucosal thickening is within maxillary sinuses inferiorly. There is been prior uncinectomies. Ethmoidectomy is present. Some minimal mucosal thickening is within the anterior inferior frontal si nus. No mucosal thickening within the remaining paranasal sinuses or mastoid air cells are evident. The septum is evaluated. There is septal deviation to the left. The ostiomeatal units regions are widely patent. IMPRESSION: 1. Very minimal mucosal thickening within the anterior inferior frontal sinus and inferior maxillary sinuses. No suspicious changes for acute or significant chronic sinusitis evident. 2. Postsurgical changes
== END | disposition home or self-care (01) ==
LOC: RADCTMAIN 09:14
PROVIDERS: ATTEND Otolaryngology
DX: J34.89 Other specified disorders of nose and nasal sinuses (principal); J33.0 Polyp of nasal cavity
CPT/HCPCS: 70486